=== PATIENT | male | born 1990 | race Caucasian/White ===

== ENCOUNTER 2016-07-07 17:03 | Emergency (ER) | payer SELFPAY ==
--- NOTE | 2016-07-07 17:16 | ER Document Report ---
ED Medical Screen (RME) - General Stated Complaint: STOMACH PAIN Notes: 25 yo male c/o fever, headache x 1 day. epigastric pain last pm, vomited x 2. no chronic illness TRAVEL OUTSIDE OF THE [place] IN LAST 30 DAYS: No - Related Data Allergies/Adverse Reactions: No Known Allergies Allergy (Unverified 08/25/13 11:30) Past Medical History Pulmonary Medical History: Reports: Hx Asthma - Immunizations Hx Diphtheria, Pertussis, Tetanus Vaccination: Yes Physical Exam - Vital signs Vitals: Temp Pulse Resp BP Pulse Ox 101.1 F H 126 H 18 134/71 H 100 07/07/16 17:12 07/07/16 17:12 07/07/16 17:12 07/07/16 17:12 07/07/16 17:12 Course - Vital Signs Vital signs: Temp Pulse Resp BP Pulse Ox 101.1 F H 126 H 18 134/71 H 100 07/07/16 17:12 07/07/16 17:12 07/07/16 17:12 07/07/16 17:12 07/07/16 17:12
[2016-07-07] MEDS ORDERED: ACETAMINOPHEN 325 MG TABLET PO ONE (17:17)
[2016-07-07 17:48] LABS: APPEARANCE,URINE SLIGHTLY-CLOUDY; BILIRUBIN,URINE NEGATIVE (NEGATIVE); GLUCOSE, URINE NEGATIVE (NEGATIVE); KETONES,URINE NEGATIVE (NEGATIVE); LEUKOCYTE ESTERASE,URINE NEGATIVE (NEGATIVE); NITRITE,URINE NEGATIVE (NEGATIVE); PROTEIN,URINE 30 mg/dL (NEGATIVE); URINE SPECIFIC GRAVITY 1.033; UROBILINOGEN,URINE NEGATIVE mg/dL (<2.0)
[2016-07-07 17:56] LABS: ABSOLUTE LYMPHOCYTES (AUTO) 0.8 10^3/uL (0.5-4.7); ABSOLUTE MONOCYTES (AUTO) 0.7 10^3/uL (0.1-1.4); ABSOLUTE NEUT (AUTO) 10.3 10^3/uL (1.7-8.2); ALANINE AMINOTRANSFERASE 48 U/L (21-72); ALBUMIN 4.1 g/dL (3.5-5.0); ALKALINE PHOSPHATASE 69 U/L (38-126); ANION GAP 14 (5-19); ASPARTATE AMINO TRANSFERASE 38 U/L (17-59); BASOPHILS % (AUTO) 0.1 % (0-2); BILIRUBIN,DIRECT 0.1 mg/dL (0.0-0.4); BLOOD UREA NITROGEN 21 mg/dL (7-20); CALCIUM 8.6 mg/dL (8.4-10.2); CARBON DIOXIDE 28 mmol/L (22-30); CHLORIDE 98 mmol/L (98-107); CREATININE RESULT 1.09 mg/dL (0.52-1.25); EOSINOPHILS % (AUTO) 0.2 % (0-6); GLUCOSE 95 mg/dL (75-110); HEMATOCRIT 44.5 % (37.9-51.0); HEMOGLOBIN 15.1 g/dL (13.5-17.0); HGB HCT DIFFERENCE 0.8; LYMPHOCYTES % (AUTO) 6.7 % (13-45); MEAN CORPUSCULAR HEMOGLOBIN 29.9 pg (27.0-33.4); MEAN CORPUSCULAR VOLUME 88 fl (80-97); MONOCYTES % (AUTO) 5.5 % (3-13); POTASSIUM 3.7 mmol/L (3.6-5.0); RED BLOOD COUNT 5.06 10^6/uL (4.35-5.55); RED CELL DISTRIBUTION WIDTH 12.9 % (11.5-14.0); SEGMENTED NEUTROPHILS % (AUTO) 87.5 % (42-78); SODIUM 140.4 mmol/L (137-145); TOTAL PROTEIN 7.2 g/dL (6.3-8.2); WHITE BLOOD COUNT 11.8 10^3/uL (4.0-10.5)
[2016-07-07] MEDS ORDERED: ONDANSETRON 4 MG TAB.RAPDIS PO ONE (20:37)
[2016-07-07] MEDS ORDERED: ONDANSETRON ODT 4 MG TAB (6 TAB/DSPK) PO PRN (20:37)
--- NOTE | 2016-07-07 20:40 | ER Document Report ---
ED General - General Chief Complaint: Headache Stated Complaint: STOMACH PAIN Time seen by provider: 20:35 Notes: Patient is a 25-year-old male that comes emergency department for chief complaint of vomiting that began last night and a fever that developed today. He states that he was having some upper abdominal pain after vomiting currently denies any symptoms. He states he had a headache but this resolved with Tylenol. He denies shortness of breath, chest pain, flank pain. He denies any current symptoms. He denies any surgeries, daily medications, or any other medical history. TRAVEL OUTSIDE OF THE [place] IN LAST 30 DAYS: No - Related Data Allergies/Adverse Reactions: No Known Allergies Allergy (Unverified 08/25/13 11:30) Past Medical History - General Information source: Patient - Social History Smoking Status: Never Smoker Frequency of alcohol use: None Drug Abuse: None Lives with: Family Family History: Reviewed & Not Pertinent Patient has suicidal ideation: No Patient has homicidal ideation: No Pulmonary Medical History: Reports: Hx Asthma Renal/ Medical History: Denies: Hx Peritoneal Dialysis Surgical Hx: Negative - Immunizations Hx Diphtheria, Pertussis, Tetanus Vaccination: Yes Review of Systems - Review of Systems Constitutional: See HPI EENT: No symptoms reported Cardiovascular: No symptoms reported Respiratory: No symptoms reported Gastrointestinal: See HPI Genitourinary: No symptoms reported Male Genitourinary: No symptoms reported Musculoskeletal: No symptoms reported Skin: No symptoms reported Hematologic/Lymphatic: No symptoms reported Neurological/Psychological: See HPI Physical Exam - Vital signs Vitals: Temp Pulse Resp BP Pulse Ox 101.1 F H 126 H 18 134/71 H 100 07/07/16 17:12 07/07/16 17:12 07/07/16 17:12 07/07/16 17:12 07/07/16 17:12 Interpretation: Normal - General General appearance: Appears well, Alert In distress: None - HEENT Head: Normocephalic, Atraumatic Eyes: Normal Conjunctiva: Normal Extraocular movements intact: Yes Eyelashes: Normal Pupils: PERRL Ears: Normal External canal: Normal Tympanic membrane: Normal Sinus: Normal Nasal: Normal Mouth/Lips: Normal Mucous membranes: Normal - Not significantly dry Pharynx: Normal Neck: Normal. No: Anterior cervical chain, Posterior cervical chain, Meningismus - Respiratory Respiratory status: No respiratory distress Chest status: Nontender Breath sounds: Normal Chest palpation: Normal - Cardiovascular Rhythm: Regular. No: Tachycardia Heart sounds: Normal auscultation, S1 appreciated, S2 appreciated Murmur: No - Abdominal Inspection: Normal Distension: No distension Bowel sounds: Normal Tenderness: Nontender Organomegaly: No organomegaly - Back Back: Normal, Nontender - Extremities General upper extremity: Normal inspection, Nontender, Normal color, Normal ROM , Normal temperature General lower extremity: Normal inspection, Nontender, Normal color, Normal ROM , Normal temperature, Normal weight bearing. No: Paul's sign - Neurological Neuro grossly intact: Yes Cognition: Normal Orientation: AAOx4 [place] Coma Scale Eye Opening: Spontaneous [place] Coma Scale Verbal: Oriented [place] Coma Scale Motor: Obeys Commands [place] Coma Scale Total: 15 Speech: Normal Motor strength normal: LUE, RUE, LLE, RLE Sensory: Normal - Psychological Associated symptoms: Normal affect, Normal mood - Skin Skin Temperature: Warm Skin Moisture: Dry Skin Color: Normal Course - Re-evaluation Re-evalutation: Patient is very well-appearing. Fever and tachycardia resolved after treatments from triage. Completely soft and benign abdomen, no nuchal rigidity , clear lungs, ENT exam is unremarkable. Mild leukocytosis, suspect this was from vomiting, dehydration on workup but patient is tolerating fluids by mouth without any difficulty. Providing the nausea medication, discussed primary care follow-up, discussed return precautions, patient states understanding and agreement - Vital Signs Vital signs: Temp Pulse Resp BP Pulse Ox 98.6 F 97 18 119/61 96 07/07/16 20:56 07/07/16 20:56 07/07/16 20:56 07/07/16 20:56 07/07/16 20:56 - Laboratory Result Diagrams: 07/07/16 17:25 07/07/16 17:25 Laboratory results interpreted by me: 07/07/16 07/07/16 07/07/16 17:25 17:25 17:25 WBC 11.8 H Seg Neutrophils % 87.5 H Lymphocytes % 6.7 L Absolute Neutrophils 10.3 H BUN 21 H Urine Protein 30 H Discharge - Discharge Clinical Impression: Nausea and vomiting Qualifiers: Vomiting type: unspecified Vomiting Intractability: non-intractable Qualified Code(s): R11.2 - Nausea with vomiting, unspecified Fever Qualifiers: Fever type: unspecified Qualified Code(s): R50.9 - Fever, unspecified Condition: Stable Disposition: HOME, SELF-CARE Additional Instructions: Symptoms, examination, and workup are most consistent with a viral syndrome. This should resolve on its own. Take Tylenol or ibuprofen for fever, drink plenty of fluids, take Zofran for nausea, rest. Follow up with primary care. Return to emergency department for any concerning worsening symptoms including uncontrolled vomiting, severe abdominal pain, etc. Prescriptions: Ondansetron [Zofran Odt 4 mg Tablet] 1 - 2 tab PO Q4H PRN #15 tab.rapdis PRN Reason: For Nausea/Vomiting Forms: Return to Work
[2016-07-07 20:57] VITALS: BP 119/61
== END 2016-07-07 20:56 | disposition home or self-care (01) ==
LOC: ER 17:03
DX: R11.2 Nausea with vomiting, unspecified (principal); R50.9 Fever, unspecified; J45.909 Unspecified asthma, uncomplicated
CPT/HCPCS: 99284; 36415; 85025; 80053; 81001; 87804; S0119

== ENCOUNTER 2016-11-20 21:49 | Emergency (ER) | payer SELFPAY ==
[2016-11-20 22:06] VITALS: BP 160/81
== END 2016-11-20 22:30 | disposition left against medical advice (07) ==
LOC: ER 21:49
DX: Z53.9 Procedure and treatment not carried out, unspecified reason (principal); S69.92XA Unspecified injury of left wrist, hand and finger(s), initial encounter

== ENCOUNTER 2017-04-19 14:07 | Emergency (ER) | payer SELFPAY ==
--- NOTE | 2017-04-19 14:46 | ER Document Report ---
ED General - General Chief Complaint: Cold Symptoms Stated Complaint: DIFFICULTY BREATHING Time Seen by Provider: 04/19/17 14:44 Information source: Patient Notes: Patient is a 26 year old male who presents with 1 month history of productive cough (yellow sputum), nasal congestion, fever (Tmax 101F yesterday), and sore throat. He denies any headache, neck pain/stiffness, SOB, chest pain, n/v/d. He endorses sick contact (nephew). He did not get flu vaccine. He has tried ibuprofen but no OTC cold medications with no symptomatic relief. He is non- smoker. TRAVEL OUTSIDE OF THE [place] IN LAST 30 DAYS: No - Related Data Allergies/Adverse Reactions: No Known Allergies Allergy (Verified 04/19/17 14:12) Past Medical History - General Information source: Patient - Social History Smoking Status: Never Smoker Family History: Reviewed & Not Pertinent Pulmonary Medical History: Reports: Hx Asthma Renal/ Medical History: Denies: Hx Peritoneal Dialysis - Immunizations Hx Diphtheria, Pertussis, Tetanus Vaccination: Yes Review of Systems - Review of Systems Constitutional: See HPI EENT: See HPI Cardiovascular: No symptoms reported Respiratory: See HPI Gastrointestinal: No symptoms reported Genitourinary: No symptoms reported Male Genitourinary: No symptoms reported Musculoskeletal: No symptoms reported Skin: No symptoms reported Hematologic/Lymphatic: No symptoms reported Neurological/Psychological: No symptoms reported Physical Exam - Vital signs Vitals: Temp Pulse Resp BP Pulse Ox 97.9 F 105 H 18 143/75 H 99 04/19/17 14:30 04/19/17 14:30 04/19/17 14:30 04/19/17 14:30 04/19/17 14:30 - Notes Notes: PHYSICAL EXAM: CONSTITUTIONAL: Alert and oriented, well-appearing and in no acute distress. Speaking in full sentences, no hypoxia, no tacypnea. HENT: Normocephalic, atraumatic. Ear canals without erythema or foreign body, TMs pearly veloz with good bony landmarks. Nares clear without erythema, septal hematoma or deviation, airway patent. Oropharynx erythematous with bilateral tonsillar enlargement without exudate or malocclusion. Trachea midline. Uvula midline. Moist mucous membranes. EYES: Pupils equal round and reactive to light, EOM intact. Sclera anicteric, conjunctiva are normal. No entrapment. NECK: supple without lymphadenopathy. No midline tenderness or paraspinous muscle spasms. No step-offs or deformities. ROM intact. HEART: Regular rate and rhythm without murmurs. LUNGS: CTAB and equal. No wheezes, rales or rhonchi. GI: Normactive bowel sounds. Nontender, non-distended. No organomegaly. no CVAT. EXTREMITIES: Normal range of motion, no pitting edema. No cyanosis. Cap Refill < 3 seconds. NEURO: Cranial nerves grossly intact. Normal sensory/motor exams. PSYCH: Normal mood, normal affect. SKIN: Warm and dry. Normal turgor. No rashes or lesions noted. Course - Re-evaluation Re-evalutation: 04/19/17 16:02 Patient seen and examined. Speaking in full sentences without difficulty, no respiratory distress. No hypoxia or tachypnea noted. Lungs CTAB. Will order chest xray and get rapid strep swab. 04/19/17 16:20 reviewed imaging studies - negative for acute findings. Discussed results with patient. reviewed labs- rapid strep pos. will give IM bicillin and decadron. Discussed supportive care instructions. At this time, will discharge with return precautions and follow-up recommendations. Verbal discharge instructions given at the bedside and opportunity for questions given. Medication warnings reviewed. Patient is in agreement with this plan and has verbalized understanding of return precautions and the need for primary care follow-up in the next 24-72 hours. - Vital Signs Vital signs: Temp Pulse Resp BP Pulse Ox 97.9 F 105 H 18 143/75 H 99 04/19/17 14:30 04/19/17 14:30 04/19/17 14:30 04/19/17 14:30 04/19/17 14:30 - Diagnostic Test Radiology reviewed: Image reviewed, Reports reviewed Discharge - Discharge Clinical Impression: Strep pharyngitis Condition: Stable Disposition: HOME, SELF-CARE Additional Instructions: SORE THROAT: Sore throats may be caused by viruses, bacteria, or fungi. Most are due to a virus, and must get better on their own. Bacterial sore throats, particularly those due to "strep," need treatment with antibiotics. If an antibiotic is prescribed, be sure to take the medication for a full 10 days. Failure to take the antibiotic can result in complications such as rheumatic fever. Sometimes, an injection of antibiotics is given instead of pills or liquid. This single "shot" is equal in effectiveness to the oral medication. To relieve symptoms, take acetaminophen for pain. Sip clear liquids frequently, or eat popsicles or ice chips. Anesthetic sprays or lozenges may help. Make sure the air in the room is not too dry. Avoid using decongestants or antihistamines. Call the doctor if there is no improvement in two days, or if you have difficulty breathing, increasing throat pain, high fever, rash, or frequent vomiting. STREP THROAT: Your sore throat is due to the streptococcus germ (strep throat). Strep throat usually makes you feel quite ill with fever and aches, headache, swollen sore throat, and tender bumps under the angles of the jaw. Strep throat requires antibiotic treatment. Although the sore throat may go away by itself, complications such as rheumatic fever, kidney disease, or throat abscess can occur. We usually prescribe antibiotics by mouth. Be sure to take the medicine until it's gone. If you stop early, the strep may come back. If you are vomiting, are severely ill, or can't remember to take pills, we can give you an antibiotic shot. Take acetaminophen or ibuprofen for pain and fever. Sip frequent clear liquids, or use popsicles or ice chips. Anesthetic sprays or lozenges may help. Make sure the air in the room is not too dry. Avoid using decongestants or antihistamines. Call the doctor if there is no improvement in three days, or if you have difficulty breathing, increasing throat pain, high fever, rash, or frequent vomiting. ORAL NARCOTIC MEDICATION: You have been given a prescription for pain control. This medication is a narcotic. It's best taken with food, as nausea can result if taken on an empty stomach. Don't operate machinery or drive within six hours of taking this medication. Do not combine this medicine with alcohol, or with any medication which can cause sedation (such as cold tablets or sleeping pills) unless you get permission from the physician. Narcotics tend to cause constipation. If possible, drink plenty of fluids and eat a diet high in fiber and fruits. Please be aware that prescription narcotics also have the potential for abuse. People become addicted to these medications because of the general sense of wellbeing that they induce. This feeling along with a significant reduction in tension, anxiety, and aggression provides a stimulating seductive quality to these drugs. Once your pain is under control, we encourage you to discard your unused narcotics. PENICILLIN V K: You have been given a one-time dose of Penicillin here. Your physician has determined that this is the best antibiotic for your condition. Pen VK can be taken with meals, however more of the antibiotic gets into the bloodstream if it's taken on an empty stomach. Penicillin usually has no side effects. However, allergy to penicillins is common. If you have had an allergic reaction to any drug of the penicillin family, you should never take any other penicillin. Notify your doctor at once if you develop hives, itching, swelling, faintness, or shortness of breath. STEROID MEDICATION: You have been given a one time dose of the cortisone/steroid class. This medication is used to control inflammation or allergy. It is usually only given for a short period of time, until the acute process subsides. There are usually no side effects from short-term use of cortisone-like medications. Some persons feel an increased sense of well-being and are not sleepy at bedtime. Long-term use of cortisone medications is best avoided, unless required for a severe condition. If your condition does not remit, or relapses after the course of corticosteroid medication, you should consult your physician. FOLLOW-UP CARE: If you have been referred to a physician for follow-up care, call the physician s office for an appointment as you were instructed or within the next two days. If you experience worsening or a significant change in your symptoms, notify the physician immediately or return to the Emergency Department at any time for re-evaluation. Prescriptions: Hydrocodone/Acetaminophen [Vicodin 5-300 mg Tablet] 1 tab PO Q6HP PRN #12 tab PRN Reason: Forms: Elevated Blood Pressure, Return to Work
--- NOTE | 2017-04-19 16:03 | RADIOLOGY REPORT (SQ) ---
EXAM DESCRIPTION: CHEST PA/LAT COMPLETED DATE/TIME: 04/19/2017 3:42 pm REASON FOR STUDY: cough, congestion COMPARISON: None. EXAM PARAMETERS: NUMBER OF VIEWS: two views TECHNIQUE: Digital Frontal and Lateral radiographic views of the chest acquired. RADIATION DOSE: NA LIMITATIONS: none FINDINGS: LUNGS AND PLEURA: No opacities, masses or pneumothorax. No pleural effusion. MEDIASTINUM AND HILAR STRUCTURES: No masses or contour abnormalities. HEART AND VASCULAR STRUCTURES: Heart normal size. No evidence for failure. BONES: No acute findings. HARDWARE: None in the chest. OTHER: No other significant finding. IMPRESSION: NO SIGNIFICANT RADIOGRAPHIC FINDING IN THE CHEST. TECHNICAL DOCUMENTATION: JOB ID: [id number] [employer]- All Rights Reserved
[2017-04-19] MEDS ORDERED: DEXAMETHASONE SOD PHOSPHATE INJ 4 MG/1 ML VIAL IM ONE (16:49)
[2017-04-19] MEDS ORDERED: PENICILLIN G BENZATHINE 1.2 MILLION UNIT/2 ML DISP.SYRIN IM ONE (16:51)
[2017-04-19 17:50] VITALS: BP 130/80
== END 2017-04-19 18:19 | disposition home or self-care (01) ==
LOC: ER 14:07
DX: J02.0 Streptococcal pharyngitis (principal); R05 Cough
CPT/HCPCS: 99283; 96372; 87880; 71046; J1100; J0561

== ENCOUNTER 2017-05-11 00:43 | Emergency (ER) | payer SELFPAY ==
--- NOTE | 2017-05-11 03:16 | ER Document Report ---
ED General - General Chief Complaint: Flu Symptoms Stated Complaint: FLLU LIKE SYMPTOMS Time Seen by Provider: 05/11/17 03:06 Notes: Patient is a 26-year-old male who presents with complaint of flulike symptoms. Patient says that he was seen here approximately 2 weeks ago. At that time he was diagnosed strep throat. He was given a shot of penicillin. After they said he felt good for several days but then started having cough and congestion again. Says he does feel like he has a lot of postnasal drip-like congestion. He has not been taking anything [id number]. He has had T-max at home of 100. No vomiting. No abdominal pain. No other complaints at this time. He has no chronic medical problems and is otherwise healthy. TRAVEL OUTSIDE OF THE [place] IN LAST 30 DAYS: No - Related Data Allergies/Adverse Reactions: No Known Allergies Allergy (Verified 04/19/17 14:12) Past Medical History - Social History Smoking Status: Never Smoker Chew tobacco use (# tins/day): No Frequency of alcohol use: None Drug Abuse: None Family History: Reviewed & Not Pertinent Patient has suicidal ideation: No Patient has homicidal ideation: No Pulmonary Medical History: Reports: Hx Asthma Renal/ Medical History: Denies: Hx Peritoneal Dialysis - Immunizations Hx Diphtheria, Pertussis, Tetanus Vaccination: Yes Review of Systems - Review of Systems Notes: My Normal Review Basic REVIEW OF SYSTEMS: CONSTITUTIONAL : T-max 100. EENT: Congestion. RESPIRATORY: Cough. GASTROINTESTINAL: Denies abdominal pain. Denies nausea, vomiting, or diarrhea. MUSCULOSKELETAL: Denies neck or back pain or joint pain or swelling. SKIN: Denies rash or skin lesions. NEUROLOGICAL: Denies altered mental status or loss of consciousness. ALL OTHER SYSTEMS REVIEWED AND NEGATIVE. Physical Exam - Vital signs Vitals: Temp Pulse Resp BP Pulse Ox 98.4 F 81 14 119/69 96 05/11/17 01:22 05/11/17 01:22 05/11/17 01:22 05/11/17 01:22 05/11/17 01:22 - Notes Notes: General Appearance: Well nourished, alert, cooperative, no acute distress, no obvious discomfort. Well-appearing. Audible nasal congestion on exam. Vitals: reviewed, See vital signs table. Head: no swelling or tenderness to the head Eyes: PERRL, EOMI, Conjuctiva clear Mouth: No decreasd moisture Throat: No tonsillar inflammation, No airway obstruction, No lymphadenopathy Ears: Normal-appearing tympanic membranes bilaterally. Neck: Supple, no neck tenderness, No thyromegaly Lungs: No wheezing, No rales, No rhonci, No accessory muscle use, good air exchange bilaterally. Heart: Normal rate, Regular rythm, No murmur, no rub Abdomen: Normal BS, soft, No rigidity, No abdominal tenderness, No guarding, no rebound, no abdominal masses, no organomegaly Extremities: strength 5/5 in all extremities, good pulses in all extremities, no swelling or tenderness in the extremities, no edema. Skin: warm, dry, appropriate color, no rash Neuro: speech clear, oriented x 3, normal affect, responds appropriately to questions. Course - Re-evaluation Re-evalutation: 05/11/17 03:56 Chest x-ray obtained because of recurrent coughing and fever at home. Chest x- ray is negative. Patient clinically looks very well. He has a large amount nasal congestion and postnasal drip on exam. I did give him a shot of dexamethasone hoping this might help reduce some inflammation of the nasopharynx and reduce his congestion. Also encouraged him to take over-the- counter Sudafed. I do not see a bacterial source of his infection at this time. I suspect most likely has a viral illness. I encouraged him follow-up with a physician in 2-3 days for reevaluation. I encourage him return to ER if he has high fevers, difficulty breathing, vomiting, or feels unwell. Patient agrees with plan will be discharged home. Dictation of this chart was performed using voice recognition software; therefore, there may be some unintended grammatical errors. - Vital Signs Vital signs: Temp Pulse Resp BP Pulse Ox 98.4 F 81 14 119/69 96 05/11/17 01:22 05/11/17 01:22 05/11/17 01:22 05/11/17 01:22 05/11/17 01:22 Discharge - Discharge Clinical Impression: Cough URI (upper respiratory infection) Qualifiers: URI type: unspecified URI Qualified Code(s): J06.9 - Acute upper respiratory infection, unspecified Condition: Good Disposition: HOME, SELF-CARE Additional Instructions: I suspect that your ongoing cough is related to the significant amount of postnasal drip or mucus that goes down the back of your throat. I have given you a shot of medication called dexamethasone which helps reduce inflammation in your nasal pharynx and around the throat. This should help your symptoms. Also please take [id number] Sudafed. This will help reduce some of the congestion you have and should help you feel better quicker. Your chest x-ray today was negative. There is no evidence of pneumonia. Please follow-up with your doctor in 2-3 days for reevaluation. Please return to the ER immediately if you have recurrent fevers over 101, vomiting, difficulty breathing, or feel that you are worsening.
--- NOTE | 2017-05-11 03:45 | RADIOLOGY REPORT (SQ) ---
EXAM DESCRIPTION: CHEST PA/LAT CLINICAL HISTORY: cough fever COMPARISON: 04/19/2017 FINDINGS: Frontal and lateral views of the chest. The cardiomediastinal silhouette has normal size and contour. No consolidation, pneumothorax, or pleural effusion. No displaced rib fractures identified. Upper abdominal soft tissues are unremarkable. IMPRESSION: 1. No acute pulmonary process identified.
[2017-05-11] MEDS ORDERED: DEXAMETHASONE SOD PHOS INJ 10 MG/1 ML VIAL IM ONE (03:54)
[2017-05-11 04:15] VITALS: BP 118/78
== END 2017-05-11 04:15 | disposition home or self-care (01) ==
LOC: ER 00:43
DX: J06.9 Acute upper respiratory infection, unspecified (principal); R05 Cough; R09.81 Nasal congestion; R09.82 Postnasal drip; J45.909 Unspecified asthma, uncomplicated
CPT/HCPCS: 71046; 99283

== ENCOUNTER 2017-06-21 00:48 | Emergency (ER) | payer SELFPAY ==
[2017-06-21 01:03] VITALS: BP 148/68
--- NOTE | 2017-06-21 09:09 | EKG REPORT ---
SEVERITY:- ABNORMAL ECG - SINUS RHYTHM INCOMPLETE RIGHT BUNDLE BRANCH BLOCK : Confirmed by: Jennifer Bonilla 21-Jun-2017 09:09:03
== END 2017-06-21 02:40 | disposition left against medical advice (07) ==
LOC: ER 00:48
DX: Z53.21 Procedure and treatment not carried out due to patient leaving prior to being seen by health care provider (principal)
CPT/HCPCS: 93005; 93010

== ENCOUNTER 2017-06-21 23:00 | Emergency (ER) | payer SELFPAY ==
[2017-06-21] MEDS ORDERED: LORAZEPAM 1 MG TABLET PO ONE (23:32)
--- NOTE | 2017-06-21 23:36 | ER Document Report ---
ED General - General Chief Complaint: Palpitations Stated Complaint: PALPITATIONS Time Seen by Provider: 06/21/17 23:23 Notes: Patient is a 26-year-old male without past medical history who states he has been taking multiple supplements that he has purchased online for "gaining mass ". Patient states he took the first dose yesterday morning and has been feeling very unwell since that time. He describes symptoms of palpitations, feeling flushed, overheated and extremely anxious. He also notes that he is felt somewhat aggressive and combative. He denies any history of similar symptoms at baseline. Nothing seems to improve or worsen his symptoms. He has not seen his primary care doctor regarding today's concerns. He has no psychiatric history. He denies any additional drug or alcohol use. TRAVEL OUTSIDE OF THE [place] IN LAST 30 DAYS: No - Related Data Allergies/Adverse Reactions: No Known Allergies Allergy (Verified 04/19/17 14:12) Past Medical History - General Information source: Patient - Social History Smoking Status: Never Smoker Frequency of alcohol use: Occasional Drug Abuse: None Lives with: Alone Family History: Reviewed & Not Pertinent Pulmonary Medical History: Reports: Hx Asthma Renal/ Medical History: Denies: Hx Peritoneal Dialysis - Immunizations Hx Diphtheria, Pertussis, Tetanus Vaccination: Yes Review of Systems - Review of Systems Notes: Constitutional: Negative for fever. HENT: Negative for sore throat. Eyes: Negative for visual changes. Cardiovascular: Positive for palpitations and chest discomfort Respiratory: Negative for shortness of breath. Gastrointestinal: Negative for abdominal pain, vomiting or diarrhea. Genitourinary: Negative for dysuria. Musculoskeletal: Negative for back pain. Skin: Negative for rash. Neurological: Negative for headaches, weakness or numbness. 10 point ROS negative except as marked above and in HPI. Physical Exam - Vital signs Vitals: Temp Pulse Resp BP Pulse Ox 97.8 F 79 16 143/77 H 100 06/21/17 23:08 06/21/17 23:08 06/21/17 23:08 06/21/17 23:08 06/21/17 23:08 Interpretation: Hypertensive Notes: PHYSICAL EXAMINATION: GENERAL: Appears anxious, in no acute distress HEAD: Atraumatic, normocephalic. EYES: Pupils equal round and reactive to light, extraocular movements intact, sclera anicteric, conjunctiva are normal. ENT: nares patent, oropharynx clear without exudates. Moderately dry mucous membranes. NECK: Normal range of motion, supple without lymphadenopathy LUNGS: Breath sounds clear to auscultation bilaterally and equal. No wheezes rales or rhonchi. HEART: Regular rate and rhythm without murmurs ABDOMEN: Soft, nontender, normoactive bowel sounds. No guarding, no rebound. No masses appreciated. EXTREMITIES: Normal range of motion, no pitting or edema. No cyanosis. NEUROLOGICAL: No focal neurological deficits. Moves all extremities spontaneously and on command. PSYCH: Somewhat anxious, fidgety SKIN: Warm, Dry, normal turgor, no rashes or lesions noted. Course - Re-evaluation Re-evalutation: 06/21/17 23:36 Patient presents with palpitations but is in no acute distress. Vitals within normal limits at time of arrival. EKG unremarkable with a normal sinus rhythm. Laboratories are unremarkable. Patient denies any chest pain, shortness of breath, or vomiting. At this time based on exam and history do not suspect a new onset arrhythmia, ACS, acute pulmonary embolus, aortic dissection. Patient symptoms are likely secondary a supplement that he has recently started taking as his symptoms started within several hours of taking that supplement and have persistent since that time. Although TSH is noted to be markedly low, the patient's free T4 is normal, free T3 is only mildly elevated. I have instructed the patient to follow-up on these labs. At this time will discharge with return precautions and follow-up recommendations. Verbal discharge instructions given a the bedside and opportunity for questions given. Medication warnings reviewed. Patient is in agreement with this plan and has verbalized understanding of return precautions and the need for primary care follow-up in the next 24-72 hours. - Vital Signs Vital signs: Temp Pulse Resp BP Pulse Ox 97.8 F 79 13 129/77 H 99 06/21/17 23:08 06/21/17 23:08 06/22/17 02:47 06/22/17 02:49 06/22/17 02:47 - Laboratory Result Diagrams: 06/21/17 23:25 06/21/17 23:25 Laboratory results interpreted by me: 06/21/17 06/21/17 06/21/17 23:25 23:25 23:25 WBC 10.8 H Glucose 111 H TSH < 0.01 L Free T3 pg/mL 7.39 H - EKG Interpretation by Me Additional EKG results interpreted by me: 06/21/17 23:37 Sinus rhythm. Rate 76. No ST elevations or depressions. QTC is 446. Discharge - Discharge Clinical Impression: Palpitations Medication reaction Qualifiers: Encounter type: initial encounter Qualified Code(s): T88.7XXA - Unspecified adverse effect of drug or medicament, initial encounter Condition: Good Disposition: HOME, SELF-CARE Additional Instructions: Stop taking the supplements that triggered her symptoms today. Return if you develop chest pain, shortness of breath, pass out, or have any other symptoms that are worrisome to you. Forms: Return to Work
[2017-06-21 23:37] LABS: ABSOLUTE BASOPHILS # (AUTO) 0.1 10^3/uL (0.0-0.2); ABSOLUTE EOSINOPHILS # (AUTO) 0.1 10^3/uL (0.0-0.6); ABSOLUTE LYMPHOCYTES (AUTO) 2.6 10^3/uL (0.5-4.7); BASOPHILS % (AUTO) 0.5 % (0-2); EOSINOPHILS % (AUTO) 1.1 % (0-6); HEMATOCRIT 41.9 % (37.9-51.0); HEMOGLOBIN 14.5 g/dL (13.5-17.0); LYMPHOCYTES % (AUTO) 24.3 % (13-45); MEAN CORPUSCULAR HEMOGLOBIN 30.1 pg (27.0-33.4); MEAN CORPUSCULAR HGB CONC 34.7 g/dL (32.0-36.0); MEAN CORPUSCULAR VOLUME 87 fl (80-97); MONOCYTES % (AUTO) 9.3 % (3-13); PLATELET COUNT 281 10^3/uL (150-450); RED BLOOD COUNT 4.82 10^6/uL (4.35-5.55); RED CELL DISTRIBUTION WIDTH 12.3 % (11.5-14.0); SEGMENTED NEUTROPHILS % (AUTO) 64.8 % (42-78); TOTAL CELLS COUNTED % (AUTO) 100 %; WHITE BLOOD COUNT 10.8 10^3/uL (4.0-10.5)
[2017-06-21 23:48] LABS: ALANINE AMINOTRANSFERASE 56 U/L (21-72); ALBUMIN 4.3 g/dL (3.5-5.0); ALKALINE PHOSPHATASE 83 U/L (38-126); ANION GAP 11 (5-19); ASPARTATE AMINO TRANSFERASE 52 U/L (17-59); BILIRUBIN,DIRECT 0.1 mg/dL (0.0-0.4); BILIRUBIN,TOTAL 0.4 mg/dL (0.2-1.3); BLOOD UREA NITROGEN 17 mg/dL (7-20); CALCIUM 9.3 mg/dL (8.4-10.2); CARBON DIOXIDE 27 mmol/L (22-30); CHLORIDE 104 mmol/L (98-107); CREATINE KINASE 137 U/L (55-170); GLUCOSE 111 mg/dL (75-110); POTASSIUM 4.1 mmol/L (3.6-5.0); SODIUM 142.2 mmol/L (137-145)
[2017-06-22 00:05] LABS: FREE T3 7.39 pg/mL (2.77-5.27); FREE T4 (FREE THYROXINE) 2.06 ng/dL (0.78-2.19)
[2017-06-22 00:21] LABS: THYROID STIMULATING HORMONE < 0.01 uIU/mL (0.47-4.68)
[2017-06-22] MEDS ORDERED: HALOPERIDOL 5 MG TABLET PO ONE (00:36)
[2017-06-22 02:51] VITALS: BP 129/77
--- NOTE | 2017-06-22 08:54 | EKG REPORT ---
SEVERITY:- ABNORMAL ECG - SINUS TACHYCARDIA NONSPECIFIC INTRAVENTRICULAR CONDUCTION DELAY : Confirmed by: Jennifer Bonilla 22-Jun-2017 08:53:25
--- NOTE | 2017-06-22 08:54 | EKG REPORT ---
SEVERITY:- ABNORMAL ECG - SINUS RHYTHM NONSPECIFIC INTRAVENTRICULAR CONDUCTION DELAY : Confirmed by: Jennifer Bonilla 22-Jun-2017 08:53:42
== END 2017-06-22 02:51 | disposition home or self-care (01) ==
LOC: ER 23:00
DX: R00.2 Palpitations (principal); F41.9 Anxiety disorder, unspecified
CPT/HCPCS: 36415; 80053; 82550; 84439; 84443; 84481; 85025; 93005; 93010; 99285

== ENCOUNTER 2017-06-25 20:04 | Emergency (ER) | payer SELFPAY ==
--- NOTE | 2017-06-25 21:15 | ER Document Report ---
ED General - General Chief Complaint: Palpitations Stated Complaint: PALPITATIONS Time Seen by Provider: 06/25/17 20:55 Notes: Patient is a 26-year-old male comes emergency department for chief complaint of episodes where he will feel like his heart is beating irregularly and rapidly, he states that during the episodes of feel short of breath, feel a discomfort in his chest, he states that earlier before coming to the ER he felt like he was going to pass out. He has not had a syncopal episode. He states that symptoms have been going on intermittently for 1 week now, he states he was seen for this a couple of days ago and told to stop taking any supplements, he has not taken any supplements for a few days. He states he had been taking some SARMS. He denies lower extremity swelling, recent travel or surgery, he denies any daily medication or any medical history. No family history of blood clot or early cardiac disease. He denies nausea or vomiting, fever or chills, cough, or any other symptoms than the ones reported. He denies recreational drugs, smoking, alcohol. TRAVEL OUTSIDE OF THE [place] IN LAST 30 DAYS: No - Related Data Allergies/Adverse Reactions: No Known Allergies Allergy (Verified 04/19/17 14:12) Past Medical History - General Information source: Patient - Social History Smoking Status: Never Smoker Frequency of alcohol use: None Drug Abuse: None Lives with: Spouse/Significant other Family History: Reviewed & Not Pertinent Pulmonary Medical History: Reports: Hx Asthma Renal/ Medical History: Denies: Hx Peritoneal Dialysis Surgical Hx: Negative - Immunizations Immunizations up to date: Yes Hx Diphtheria, Pertussis, Tetanus Vaccination: Yes Review of Systems - Review of Systems Constitutional: No symptoms reported EENT: No symptoms reported Cardiovascular: See HPI Respiratory: No symptoms reported Gastrointestinal: No symptoms reported Genitourinary: No symptoms reported Male Genitourinary: No symptoms reported Musculoskeletal: No symptoms reported Skin: No symptoms reported Hematologic/Lymphatic: No symptoms reported Neurological/Psychological: See HPI Physical Exam - Vital signs Vitals: Temp Pulse Resp BP Pulse Ox 97.8 F 89 18 136/72 H 100 06/25/17 20:51 06/25/17 20:51 06/25/17 20:51 06/25/17 20:51 06/25/17 20:51 - General General appearance: Anxious In distress: None - HEENT Head: Normocephalic, Atraumatic Eyes: Normal Conjunctiva: Normal Extraocular movements intact: Yes Eyelashes: Normal Pupils: PERRL - Slightly dilated pupils bilaterally Nasal: Normal Mouth/Lips: Normal Mucous membranes: Normal Pharynx: Normal Neck: Normal - Respiratory Respiratory status: No respiratory distress. No: Labored, Tachypnea Breath sounds: Normal. No: Decreased air movement, Wheezing - Cardiovascular Rhythm: Regular. No: Tachycardia Heart sounds: Normal auscultation, S1 appreciated, S2 appreciated Murmur: No Normal capillary refill: Yes - Abdominal Inspection: Normal Tenderness: Nontender. No: Tender, Guarding - Extremities General upper extremity: Normal inspection, Nontender, Normal strength, Normal temperature General lower extremity: Normal inspection, Nontender, Normal strength, Normal temperature. No: Edema - Neurological Neuro grossly intact: Yes Cognition: Normal Orientation: AAOx4 Aro[place]o Coma Scale Eye Opening: Spontaneous [place] Coma Scale Verbal: Oriented [place]o Coma Scale Motor: Obeys Commands Aroldo Coma Scale Total: 15 Speech: Normal Cranial nerves: Normal Cerebellar coordination: Normal Motor strength normal: LUE, RUE, LLE, RLE Additional motor exam normals: Equal vertical borer Sensory: Normal - Psychological Associated symptoms: Anxious - Skin Skin Temperature: Warm Skin Moisture: Dry Skin Color: Normal Course - Re-evaluation Re-evalutation: EKG shows sinus rhythm with no T-wave inversions or ST segment changes in consecutive leads. Right bundle branch block. Normal OR interval. Chest x-ray unremarkable. CBC, chemistry, urinalysis, urine drug screen, d- dimer, troponin are all negative and unremarkable. Very low suspicion of ACS, pulmonary embolism. Placed patient on monitoring, patient began to complain that he was having the palpitations and discomfort again, I entered the room, patient was mildly tachycardic, pupils were dilated, flushed, and appeared to be very anxious with a panic attack. However the monitor remains sinus rhythm. He had no PVCs or arrhythmias noted with the entire duration of his monitoring. Patient given 0.5 mg of Ativan, symptoms subsided completely. I did review that 2 days ago patient had a thyroid panel performed, TSH is very low, T3 mildly elevated. Suggestive of hyperthyroid component, however patient is now asymptomatic with normal vital signs, had normal presenting vital signs, and thyroid panel was not overly concerning. I provided patient with copy of this, he will follow-up with primary care for this, I did discuss anxiety, panic attacks, and his workup in total. I did provide patient with small amount of Ativan only to take in the event of panic attacks, he will have additional management by primary care for this as well. Patient states understanding and agreement with plan. - Vital Signs Vital signs: Temp Pulse Resp BP Pulse Ox 99.8 F 89 20 121/64 98 06/25/17 23:55 06/25/17 20:51 06/25/17 23:55 06/25/17 23:55 06/25/17 23:55 - Laboratory Result Diagrams: 06/25/17 21:35 06/25/17 21:35 Laboratory results interpreted by me: 06/25/17 06/25/17 21:35 21:35 Monocytes % 13.4 H BUN 23 H Discharge - Discharge Clinical Impression: Tachycardia, Anxiety Condition: Stable Disposition: HOME, SELF-CARE Additional Instructions: It is not completely clear if your symptoms were from the supplements, this seems less likely now because of the duration since he took them, however your thyroid panel was not normal and has a hyperthyroid shift. This can cause a variety of symptoms. Please take your thyroid results and follow-up with primary care to have this workup and management completed. Avoid caffeine or other stimulants. Tonight you appeared to have a panic attack. See additional details on this below. In the event of a panic attack, take the medication prescribed only if needed, do not take otherwise. Do not drive, mix with alcohol, mixed with other sedating medication. Follow-up with primary care in regards to this as well. Panic Attack The cause of panic attacks is unknown. Symptoms can include chest pain, shortness of breath, palpitations, sweats, and a sense of smothering or impending doom. In time, the panic attacks can lead to generalized anxiety and phobias. Because the symptoms can mimic heart attack, pulmonary embolism, and other serious diseases, the physician has evaluated you for these conditions. There is no evidence of a serious problem. An acute panic attack usually goes away by itself without treatment. A severe attack can be treated with medicine to calm you. Long-term, antidepressant medicines may help prevent attacks. Counselling can also be very beneficial in dealing with panic attacks. Panic attacks are less likely if you are getting regular exercise, proper diet, and plenty of sleep. It's normal for panic attacks to cause many frightening symptoms. However, you should call or return if your symptoms change significantly or if you are worsening. Prescriptions: Lorazepam [Ativan 1 mg Tablet] 1 mg PO Q4 PRN #10 tab PRN Reason:
[2017-06-25 21:47] LABS: ABSOLUTE BASOPHILS # (AUTO) 0.1 10^3/uL (0.0-0.2); ABSOLUTE EOSINOPHILS # (AUTO) 0.1 10^3/uL (0.0-0.6); ABSOLUTE LYMPHOCYTES (AUTO) 2.9 10^3/uL (0.5-4.7); ABSOLUTE MONOCYTES (AUTO) 1.2 10^3/uL (0.1-1.4); ABSOLUTE NEUT (AUTO) 4.4 10^3/uL (1.7-8.2); BASOPHILS % (AUTO) 0.6 % (0-2); EOSINOPHILS % (AUTO) 1.6 % (0-6); HEMATOCRIT 43.4 % (37.9-51.0); HEMOGLOBIN 15.2 g/dL (13.5-17.0); LYMPHOCYTES % (AUTO) 33.6 % (13-45); MEAN CORPUSCULAR HEMOGLOBIN 30.2 pg (27.0-33.4); MEAN CORPUSCULAR VOLUME 86 fl (80-97); MONOCYTES % (AUTO) 13.4 % (3-13); PLATELET COUNT 304 10^3/uL (150-450); RED BLOOD COUNT 5.03 10^6/uL (4.35-5.55); RED CELL DISTRIBUTION WIDTH 12.2 % (11.5-14.0); SEGMENTED NEUTROPHILS % (AUTO) 50.8 % (42-78); TOTAL CELLS COUNTED % (AUTO) 100 %; WHITE BLOOD COUNT 8.6 10^3/uL (4.0-10.5)
--- NOTE | 2017-06-25 21:48 | RADIOLOGY REPORT (SQ) ---
EXAM DESCRIPTION: CHEST SINGLE VIEW COMPLETED DATE/TIME: 06/25/2017 9:38 pm REASON FOR STUDY: chest pain COMPARISON: 05/11/2017 EXAM PARAMETERS: NUMBER OF VIEWS: One view. TECHNIQUE: Single frontal radiographic view of the chest acquired. RADIATION DOSE: NA LIMITATIONS: None. FINDINGS: LUNGS AND PLEURA: No opacities, masses or pneumothorax. No pleural effusion. MEDIASTINUM AND HILAR STRUCTURES: No masses. Contour normal. HEART AND VASCULAR STRUCTURES: Heart normal in size. Normal vasculature. BONES: No acute findings. HARDWARE: None in the chest. OTHER: No other significant finding. IMPRESSION: NO ACUTE RADIOGRAPHIC FINDING IN THE CHEST. TECHNICAL DOCUMENTATION: JOB ID: [id number] [employer]- All Rights Reserved Reading location - IP/workstation name: [email or web address]
[2017-06-25 22:10] LABS: ALANINE AMINOTRANSFERASE 66 U/L (21-72); ALBUMIN 4.4 g/dL (3.5-5.0); ALKALINE PHOSPHATASE 81 U/L (38-126); ANION GAP 11 (5-19); ASPARTATE AMINO TRANSFERASE 38 U/L (17-59); BILIRUBIN,DIRECT 0.4 mg/dL (0.0-0.4); BILIRUBIN,TOTAL 0.5 mg/dL (0.2-1.3); BLOOD UREA NITROGEN 23 mg/dL (7-20); CALCIUM 9.9 mg/dL (8.4-10.2); CARBON DIOXIDE 26 mmol/L (22-30); CHLORIDE 106 mmol/L (98-107); GLUCOSE 99 mg/dL (75-110); POTASSIUM 3.9 mmol/L (3.6-5.0); SODIUM 142.6 mmol/L (137-145); TOTAL PROTEIN 7.5 g/dL (6.3-8.2)
[2017-06-25] MEDS ORDERED: LORAZEPAM INJ 2 MG/1 ML VIAL IV ONE (22:14)
[2017-06-25 22:35] LABS: APPEARANCE,URINE CLEAR; BILIRUBIN,URINE NEGATIVE (NEGATIVE); COLOR,URINE STRAW; GLUCOSE, URINE NEGATIVE (NEGATIVE); KETONES,URINE NEGATIVE (NEGATIVE); LEUKOCYTE ESTERASE,URINE NEGATIVE (NEGATIVE); NITRITE,URINE NEGATIVE (NEGATIVE); PROTEIN,URINE NEGATIVE (NEGATIVE); URINE SPECIFIC GRAVITY 1.008; UROBILINOGEN,URINE NEGATIVE mg/dL (<2.0)
[2017-06-25 22:47] LABS: URINE AMPHETAMINES SCREEN NEGATIVE; URINE BARBITURATES SCREEN NEGATIVE; URINE BENZODIAZEPINES SCREEN NEGATIVE; URINE COCAINE SCREEN NEGATIVE; URINE MARIJUANA (THC) SCREEN NEGATIVE; URINE METHADONE SCREEN NEGATIVE; URINE PHENCYCLIDINE SCREEN NEGATIVE
[2017-06-26] VITALS: BP 121/64
--- NOTE | 2017-06-26 10:41 | EKG REPORT ---
SEVERITY:- ABNORMAL ECG - SINUS TACHYCARDIA RIGHT BUNDLE BRANCH BLOCK : Confirmed by: Jennifer Bonilla 26-Jun-2017 10:40:40
== END 2017-06-26 00:20 | disposition home or self-care (01) ==
LOC: ER 20:04
DX: F41.9 Anxiety disorder, unspecified (principal); R00.0 Tachycardia, unspecified; R09.89 Other specified symptoms and signs involving the circulatory and respiratory systems; I45.10 Unspecified right bundle-branch block; J45.909 Unspecified asthma, uncomplicated; R06.02 Shortness of breath
CPT/HCPCS: 93005; 99285; 96374; 36415; 83735; 85025; 80053; 81001; 84484; 80307; 85379; 71045; 93010; J2060

== ENCOUNTER 2017-09-01 00:08 | Emergency (ER) | payer SELFPAY ==
--- NOTE | 2017-09-01 00:31 | ER Document Report ---
ED General - General Chief Complaint: Chest Pain Stated Complaint: CHEST PAIN Time Seen by Provider: 09/01/17 00:16 Notes: Patient is a 26-year-old male who presents with complaint of some chest pain shortness of breath. He says he feels more as if he just cannot get air in. He was seen here back in June for palpitations. At that time he was taking a "hormone booster" to help with working out and putting on muscle. He was having palpitations and feeling well at that time. Is also noted that his TSH was a little bit low and is T3 was low bit elevated. Followed up with his primary care doctor was placed on Atenolol. He says since starting Atenolol he has felt a little bit more week and has felt some shortness of breath. He is wondering if the Atenolol dose is too high. He is unsure with his repeat thyroid studies have shown. Denies any fevers. No infections. Denies any recent leg pain or leg swelling. No other complaints this time. He has a previous history of asthma. He does not think he has been wheezing. TRAVEL OUTSIDE OF THE [place] IN LAST 30 DAYS: No - Related Data Allergies/Adverse Reactions: No Known Allergies Allergy (Verified 04/19/17 14:12) Past Medical History - Social History Smoking Status: Never Smoker Frequency of alcohol use: None Drug Abuse: None Family History: Reviewed & Not Pertinent Pulmonary Medical History: Reports: Hx Asthma Renal/ Medical History: Denies: Hx Peritoneal Dialysis - Immunizations Immunizations up to date: Yes Hx Diphtheria, Pertussis, Tetanus Vaccination: Yes Review of Systems - Review of Systems Notes: My Normal Review Basic REVIEW OF SYSTEMS: CONSTITUTIONAL : Denies fever, chills, or sweats. Denies recent illness. EENT: Denies eye, ear, throat, or mouth pain or symptoms. Denies nasal or sinus congestion. CARDIOVASCULAR: No real chest pain. He has more tightness in the chest. RESPIRATORY: Feels as if he cannot get air in when taking a deep breath. GASTROINTESTINAL: Denies abdominal pain. Denies nausea, vomiting, or diarrhea. Denies constipation. Last BM: MUSCULOSKELETAL: Denies neck or back pain or joint pain or swelling. SKIN: Denies rash or skin lesions. NEUROLOGICAL: Denies altered mental status or loss of consciousness. Denies headache. Denies weakness or paralysis or loss of use of either side. Denies problems with gait or speech. Denies sensory or motor loss. ALL OTHER SYSTEMS REVIEWED AND NEGATIVE. Physical Exam - Vital signs Vitals: Temp Pulse Resp BP Pulse Ox 98.5 F 56 L 18 134/77 H 99 09/01/17 00:13 09/01/17 00:13 09/01/17 00:13 09/01/17 00:13 09/01/17 00:13 - Notes Notes: General Appearance: Well nourished, alert, cooperative, no acute distress, no obvious discomfort. Well-appearing. Vitals: reviewed, See vital signs table. Head: no swelling or tenderness to the head Eyes: PERRL, EOMI, Conjuctiva clear Mouth: No decreasd moisture Lungs: No wheezing, No rales, No rhonci, No accessory muscle use, good air exchange bilaterally. Heart: Normal rate, Regular rythm, No murmur, no rub Abdomen: Normal BS, soft, No rigidity, No abdominal tenderness, No guarding, no rebound, no abdominal masses, no organomegaly Extremities: strength 5/5 in all extremities, good pulses in all extremities, no swelling or tenderness in the extremities, no edema. Skin: warm, dry, appropriate color, no rash Neuro: speech clear, oriented x 3, normal affect, responds appropriately to questions. Course - Re-evaluation Re-evalutation: 09/01/17 02:56 Patient was placed on atenolol by the primary care doctor because palpitations and hyperthyroidism. Since she states she is actually now will be elevated. His T3 is decreasing. I wonder if it may be the hormone supplementation that he was taking may have had some effect on his thyroid production. Patient is already bradycardic with heart rate in the upper 40s and low 50s. Therefore should stop atenolol. Atenolol could also be affecting his breathing and making his heart rate decreased. I talked about this and is agreeable to this. I strongly encouraged him follow-up with his doctor next 1-2 days for reevaluation and to recheck his thyroid levels. I strongly encouraged her return to ER if he has recurrent difficulty breathing, heart racing, palpitations, or if he feels unwell. Patient agrees with plan will be discharged home. Dictation of this chart was performed using voice recognition software; therefore, there may be some unintended grammatical errors. - Vital Signs Vital signs: Temp Pulse Resp BP Pulse Ox 98.5 F 56 L 16 112/73 99 09/01/17 00:13 09/01/17 00:13 09/01/17 02:31 09/01/17 02:31 09/01/17 02:31 - Laboratory Laboratory results interpreted by me: 09/01/17 01:17 TSH 7.55 H Free T3 pg/mL 5.90 H - EKG Interpretation by Me Additional EKG results interpreted by me: 09/01/17 00:27 EKG is reviewed and interpreted by me. EKG shows sinus rhythm with a rate of [address] segment elevation or depression. No ischemic T-wave inversions. MD interval and QT intervals are within normal range. QRS duration slightly prolonged. Patient does have appears to be an incomplete or atypical right bundle branch block. These findings are consistent with his previous EKG from June 25, 2017. Discharge - Discharge Clinical Impression: Dyspnea Qualifiers: Dyspnea type: unspecified Qualified Code(s): R06.00 - Dyspnea, unspecified Condition: Good Disposition: HOME, SELF-CARE Additional Instructions: Please stop taking the Atenolol. Please call your doctor in the am to make a close follow up appointment on tuesday. Please return to the ER if you feel that you heart is racing, have recurrent difficulty breathing, or feel that you are worsening n any way. Forms: Return to Work
--- NOTE | 2017-09-01 00:57 | RADIOLOGY REPORT (SQ) ---
EXAM DESCRIPTION: Single view of the chest CLINICAL HISTORY: dyspnea COMPARISON: 06/25/2017 FINDINGS: Single frontal view of the chest. The cardiomediastinal silhouette has normal size and contour. No consolidation, pneumothorax, or pleural effusion. No displaced rib fractures identified. Upper abdominal soft tissues are unremarkable. IMPRESSION: 1. No acute pulmonary process identified.
[2017-09-01 01:59] LABS: FREE T3 5.9 pg/mL (2.77-5.27); FREE T4 (FREE THYROXINE) 1.1 ng/dL (0.78-2.19)
[2017-09-01 02:13] LABS: THYROID STIMULATING HORMONE 7.55 uIU/mL (0.47-4.68)
[2017-09-01 02:49] VITALS: BP 112/73
--- NOTE | 2017-09-01 09:57 | EKG REPORT ---
SEVERITY:- ABNORMAL ECG - SINUS RHYTHM IVCD, CONSIDER ATYPICAL RBBB INFERIOR Q WAVES, PROBABLY NORMAL VARIATION : Confirmed by: Jennifer Bonilla 01-Sep-2017 09:56:56
== END 2017-09-01 02:33 | disposition home or self-care (01) ==
LOC: ER 00:08
DX: J45.909 Unspecified asthma, uncomplicated (principal); R06.02 Shortness of breath; R00.1 Bradycardia, unspecified; R07.89 Other chest pain; R53.1 Weakness; R00.2 Palpitations; E05.90 Thyrotoxicosis, unspecified without thyrotoxic crisis or storm; Z79.899 Other long term (current) drug therapy
CPT/HCPCS: 36415; 71045; 84439; 84443; 84481; 93005; 93010; 99285

== ENCOUNTER 2017-09-01 21:27 | Emergency (ER) | payer SELFPAY ==
--- NOTE | 2017-09-01 21:55 | ER Document Report ---
ED Medical Screen (RME) - General Chief Complaint: Palpitations Stated Complaint: CHEST PAIN, PALPITATIONS Time Seen by Provider: 09/01/17 21:52 TRAVEL OUTSIDE OF THE [place] IN LAST 30 DAYS: No - HPI Notes: 09/01/17 21:52 Patient is a 26-year-old male with a history of anxiety and palpitations who presents to the ED complaining of left sternal chest pain and episodes of palpitations over the last couple hours. Patient states that he used to be on atenolol, but has since stopped that. Patient has been seen before in the past for palpitations. He is still eating and drinking without difficulties. He is urinating normally. He does not smoke, drink, or do drugs. 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 Denies any headache, fever, neck pain, URI, sore throat, syncope, cough, shortness of breath, wheeze, dyspnea, abdominal pain, nausea/ vomiting/diarrhea, urinary retention, dysuria, hematuria, or rash. I have treated and performed a rapid initial assessment of this patient. A comprehensive ED assessment and evaluation of the patient, analysis of test results and completion of medical decision making process will be conducted by additional ED providers. PHYSICAL EXAMINATION: GENERAL: Well-appearing, well-nourished and in no acute distress. A&Ox4. Answers questions appropriately. Chest: + tenderness to the left sternal border, correlates with pain described. LUNGS: Breath sounds clear to auscultation bilaterally and equal. No wheezes rales or rhonchi. HEART: Regular rate and rhythm without murmurs, rubs, gallops. Extremities: No cyanosis, clubbing, or edema b/l. NEUROLOGICAL: Normal speech, normal gait. PSYCH: Normal mood, normal affect. - Related Data Allergies/Adverse Reactions: No Known Allergies Allergy (Verified 04/19/17 14:12) Past Medical History Pulmonary Medical History: Reports: Hx Asthma Renal/ Medical History: Denies: Hx Peritoneal Dialysis - Immunizations Immunizations up to date: Yes Hx Diphtheria, Pertussis, Tetanus Vaccination: Yes Physical Exam - Vital signs Vitals: Temp Pulse Resp BP Pulse Ox 97.6 F 61 18 136/72 H 100 09/01/17 21:44 09/01/17 21:44 09/01/17 21:44 09/01/17 21:44 09/01/17 21:44 Course - Vital Signs Vital signs: Temp Pulse Resp BP Pulse Ox 97.6 F 61 18 136/72 H 100 09/01/17 21:44 09/01/17 21:44 09/01/17 21:44 09/01/17 21:44 09/01/17 21:44
--- NOTE | 2017-09-01 22:42 | RADIOLOGY REPORT (SQ) ---
EXAM DESCRIPTION: CHEST 2 VIEWS COMPLETED DATE/TIME: 09/01/2017 10:30 pm REASON FOR STUDY: chest pain COMPARISON: 05/11/2017 EXAM PARAMETERS: NUMBER OF VIEWS: two views TECHNIQUE: Digital Frontal and Lateral radiographic views of the chest acquired. RADIATION DOSE: NA LIMITATIONS: none FINDINGS: LUNGS AND PLEURA: No opacities, masses or pneumothorax. No pleural effusion. MEDIASTINUM AND HILAR STRUCTURES: No masses or contour abnormalities. HEART AND VASCULAR STRUCTURES: Heart normal size. No evidence for failure. BONES: No acute findings. HARDWARE: None in the chest. OTHER: No other significant finding. IMPRESSION: NO ACUTE RADIOGRAPHIC FINDING IN THE CHEST. TECHNICAL DOCUMENTATION: JOB ID: [id number] [email or web address]- All Rights Reserved Reading location - IP/workstation name: [email or web address]
--- NOTE | 2017-09-01 23:40 | ER Document Report ---
ED General - General Chief Complaint: Palpitations Stated Complaint: CHEST PAIN, PALPITATIONS Time Seen by Provider: 09/01/17 21:52 Notes: Patient is a 26-year-old male who presents with complaint of feeling palpitations. When asked him to explain palpitations he says he just feels as if his heart beats hard. He says it does not initially be fast but it beats heart sometimes hurts when the beats. I saw him yesterday for similar symptoms. Patient has a history of taking hormone supplementation. He was seen a month ago after this he was told to stop doing that and also his thyroid function was off and therefore he was referred to primary care doctor placed on atenolol. Patient's heart rate last night was in the 40s most the time he was on a monitor and therefore I told him he has a state taking the atenolol. Patient says he feels that his palpitations have increased even though his heart rate is completely normal here. When talking to mom watch and monitor and I do not see any evidence in his heart rate remains in the 50s and 60s a whole time in the room. TRAVEL OUTSIDE OF THE [place] IN LAST 30 DAYS: No - Related Data Allergies/Adverse Reactions: No Known Allergies Allergy (Verified 04/19/17 14:12) Past Medical History - Social History Smoking Status: Never Smoker Frequency of alcohol use: None Drug Abuse: None Family History: Reviewed & Not Pertinent Pulmonary Medical History: Reports: Hx Asthma Renal/ Medical History: Denies: Hx Peritoneal Dialysis - Immunizations Immunizations up to date: Yes Hx Diphtheria, Pertussis, Tetanus Vaccination: Yes Review of Systems - Review of Systems Notes: My Normal Review Basic REVIEW OF SYSTEMS: CONSTITUTIONAL : Denies fever, chills, or sweats. Denies recent illness. EENT: Denies eye, ear, throat, or mouth pain or symptoms. Denies nasal or sinus congestion. CARDIOVASCULAR: Occasional pain in chest when he feels a "hard heartbeat". RESPIRATORY: Denies cough, cold, or chest congestion. Denies shortness of breath, difficulty breathing, or wheezing. GASTROINTESTINAL: Denies abdominal pain. Denies nausea, vomiting, or diarrhea. Denies constipation. Last BM: GENITOURINARY: Denies difficulty urinating, painful urination, burning, frequency, or blood in urine. MUSCULOSKELETAL: Denies neck or back pain or joint pain or swelling. SKIN: Denies rash or skin lesions. NEUROLOGICAL: Denies altered mental status or loss of consciousness. Denies headache. Denies weakness or paralysis or loss of use of either side. Denies problems with gait or speech. Denies sensory or motor loss. ALL OTHER SYSTEMS REVIEWED AND NEGATIVE. Physical Exam - Vital signs Vitals: Temp Pulse Resp BP Pulse Ox 97.6 F 61 18 136/72 H 100 09/01/17 21:44 09/01/17 21:44 09/01/17 21:44 09/01/17 21:44 09/01/17 21:44 - Notes Notes: General Appearance: Well nourished, alert, cooperative, no acute distress, no obvious discomfort. Well-appearing. Vitals: reviewed, See vital signs table. Head: no swelling or tenderness to the head Eyes: PERRL, EOMI, Conjuctiva clear Mouth: No decreasd moistur Neck: Supple, no neck tenderness, No thyromegaly Lungs: No wheezing, No rales, No rhonci, No accessory muscle use, good air exchange bilaterally. Heart: Normal rate, Regular rythm, No murmur, no rub Extremities: strength 5/5 in all extremities, good pulses in all extremities, no swelling or tenderness in the extremities, no edema. Skin: warm, dry, appropriate color, no rash Neuro: speech clear, oriented x 3, normal affect, responds appropriately to questions. Course - Re-evaluation Re-evalutation: 09/02/17 05:59 She looks very well on exam. I do not see evidence of PACs or PVCs while talked to the patient watch and monitor. He has normal-appearing EKG except for right bundle branch block which is old in comparison to his previous EKGs. Chest x-ray is ordered in triage and continues to be normal. I will refer him to cardiology for follow-up and possible Holter monitor placement. Patient has no risk factors for coronary disease. Otherwise looks well. Patient was again asked about whether or not he should take an estrogen supplements to help with his thyroid. I informed him that last night when he is here his thyroid function numbers were improving significantly and that he should therefore stay away from all forms of supplement or amount that are not prescribed. Patient agrees to do this. Patient return to ER if she he has severe chest pain, difficulty breathing, rapid heartbeat, or if he feels unwell. Patient agrees with plan will be discharged home. Dictation of this chart was performed using voice recognition software; therefore, there may be some unintended grammatical errors. - Vital Signs Vital signs: Temp Pulse Resp BP Pulse Ox 97.8 F 85 18 122/78 100 09/01/17 23:52 09/01/17 23:52 09/01/17 23:52 09/01/17 23:52 09/01/17 23:52 - EKG Interpretation by Me Additional EKG results interpreted by me: 09/01/17 23:39 EKG is reviewed and interpreted by me. EKG shows sinus rhythm with rate [address] segment elevation or depression. No ischemic T-wave inversions. ID interval and QTc intervals are within normal range. QRS duration is slightly prolonged. Patient does have a incomplete right bundle branch block which is unchanged comparison to his previous EKG. Discharge - Discharge Clinical Impression: Heart palpitations Condition: Good Disposition: HOME, SELF-CARE Additional Instructions: Please do not take the Atenolol as your heart rate is too ow too take it. Please call Dr. Shannon's office in the am and inform them that the ER is referring you there for evaluation and potential holter monitor due to your recurrent palpitations. Please do not take any form of hormone supplementation. Your Thyroid function was much improved last night compared to last month. Despite this, you still need to follow up with your doctor early next week and have it rechecked to make sure it is continuing to improve. Referrals: TESSY SHANNON MD [ACTIVE STAFF] - 09/02/17
[2017-09-01 23:53] VITALS: BP 122/78
[2017-09-02] MEDS ORDERED: ACETAMINOPHEN 325 MG TABLET ONE (00:56)
--- NOTE | 2017-09-02 08:17 | EKG REPORT ---
SEVERITY:- ABNORMAL ECG - SINUS RHYTHM NONSPECIFIC INTRAVENTRICULAR CONDUCTION DELAY : Confirmed by: eJnnifer Bonilla 02-Sep-2017 05:17:26
== END 2017-09-01 23:55 | disposition home or self-care (01) ==
LOC: ER 21:27
DX: R00.2 Palpitations (principal); R07.9 Chest pain, unspecified; I45.10 Unspecified right bundle-branch block; J45.909 Unspecified asthma, uncomplicated
CPT/HCPCS: 71046; 93005; 93010; 99284

== ENCOUNTER 2017-09-02 00:41 | Emergency (ER) | payer SELFPAY ==
[2017-09-02] MEDS ORDERED: LORAZEPAM 1 MG TABLET PO ONE (02:55)
--- NOTE | 2017-09-02 03:18 | ER Document Report ---
ED General - General Chief Complaint: Palpitations Stated Complaint: RAPID HEART RATE Time Seen by Provider: 09/02/17 02:54 TRAVEL OUTSIDE OF THE [place] IN LAST 30 DAYS: No - HPI Notes: Patient is a 26-year-old male with a history of palpitations who presents to the ED for the second time tonight complaining of continued palpitations. He was evaluated by Dr. Cid earlier and was advised to stop his atenolol and to follow-up with cardiology tomorrow for possible Holter monitor. Patient was evaluated in June for palpitations as well he was taking a hormone booster at that time and was found to have hyperthyroidism because of it. Patient states that he is still eating and drinking without difficulties. He is urinating normally and having normal bowel moods. He has no other concerns or complaints at this time. Denies any headache, fever, neck pain, URI, sore throat, chest pain, syncope, cough, shortness of breath, wheeze, dyspnea, abdominal pain, nausea/vomiting/diarrhea, urinary retention, dysuria, hematuria, loss of control of bowel or bladder, numbness/tingling, saddle anesthesia, muscle paralysis/weakness, or rash. - Related Data Allergies/Adverse Reactions: No Known Allergies Allergy (Verified 04/19/17 14:12) Past Medical History - Social History Smoking Status: Unknown if Ever Smoked Chew tobacco use (# tins/day): No Frequency of alcohol use: None Drug Abuse: None Family History: Reviewed & Not Pertinent Patient has suicidal ideation: No Patient has homicidal ideation: No Pulmonary Medical History: Reports: Hx Asthma Renal/ Medical History: Denies: Hx Peritoneal Dialysis - Immunizations Immunizations up to date: Yes Hx Diphtheria, Pertussis, Tetanus Vaccination: Yes Review of Systems - Review of Systems -: Yes All other systems reviewed and negative Physical Exam - Vital signs Vitals: Temp Pulse Resp BP Pulse Ox 97.6 F 61 16 139/85 H 100 09/02/17 01:37 09/02/17 01:37 09/02/17 01:37 09/02/17 01:37 09/02/17 01:37 - Notes Notes: PHYSICAL EXAMINATION: GENERAL: Well-appearing, well-nourished and in no acute distress. HEAD: Atraumatic, normocephalic. EYES: Pupils equal round and reactive to light, extraocular movements intact, sclera anicteric, conjunctiva are normal. ENT: Nares patent and without discharge. oropharynx clear without exudates. No tonsilar hypertrophy or erythema. Moist mucous membranes. NECK: Normal range of motion, supple without lymphadenopathy LUNGS: Breath sounds clear to auscultation bilaterally and equal. No wheezes rales or rhonchi. HEART: Regular rate and rhythm without murmurs, rubs, gallops. ABDOMEN: Soft, nontender, nondistended abdomen. No guarding, no rebound. No masses appreciated. Normal bowel sounds present. No CVA tenderness bilaterally. Musculoskeletal: FROM to passive/active. Strength 5+/5. Extremities: No cyanosis, clubbing, or edema b/l. Peripheral pulses 2+. Capillary refill less than 3 seconds. NEUROLOGICAL: Cranial nerves grossly intact. Normal speech, normal gait. Normal sensory, motor exams PSYCH: Normal mood, normal affect. SKIN: Warm, Dry, normal turgor, no rashes or lesions noted. Course - Re-evaluation Re-evalutation: 09/02/17 04:25 Patient is an afebrile, well-hydrated, 26-year-old male who presents to the ED with palpitations, unspecified. Vitals are acceptable. PE is otherwise unremarkable. He did not have any irregular rhythm or tachycardia during his stay in the emergency department again for this visit. He has no tachypnea or hypoxia. He is nontoxic-appearing. He is sleeping comfortably during half of his stay. He is tolerating p.o. without any difficulties. CBC, CMP, urinalysis , urine drug screen were unremarkable for any acute pathology. Patient had a thyroid panel performed just prior to this visit. Patient is to refrain from his atenolol as previously instructed. Patient to call Dr. Shannon in the morning for further evaluation and management. Recheck with your PCM in 3-5 days. Return to the ED with any worsening/concerning symptoms otherwise as reviewed discharge. Patient is in agreement. Case reviewed with Dr. Cid who is also in agreement with dispo/plan. - Vital Signs Vital signs: Temp Pulse Resp BP Pulse Ox 97.6 F 61 12 113/69 100 09/02/17 01:37 09/02/17 01:37 09/02/17 04:01 09/02/17 04:01 09/02/17 04:01 - Laboratory Result Diagrams: 09/02/17 03:23 09/02/17 03:23 Laboratory results interpreted by me: 09/02/17 09/02/17 09/02/17 03:15 03:23 03:23 WBC 13.3 H Absolute Neutrophils 10.2 H Sodium 145.4 H Urine Ascorbic Acid 20 H Discharge - Discharge Clinical Impression: Palpitations Condition: Stable Disposition: HOME, SELF-CARE Additional Instructions: Maintain adequate fluid and food intake Take home medications as directed healthy diet Exercise regularly Weight control Monitor blood pressure daily and keep a log Monitor symptoms for any acute changes Recheck with your PCM in 3-5 days Call the data warehousing architect tomorrow to schedule an appointment for further evaluation and management Return to the ED with any worsening symptoms and/or development of fever, headache, chest pain, palpitations, syncope, shortness of breath, trouble breathing, abdominal pain, n/v/d, blood in stool/urine, loss of control of bowel /bladder, urinary retention, muscle weakness/paralysis, numbness/tingling, or other worsening symptoms that are concerning to you. Referrals: TESSY SHANNON MD [ACTIVE STAFF] - Follow up in 3-5 days (call tomorrow to schedule an appointment)
[2017-09-02 03:27] LABS: APPEARANCE,URINE CLEAR; BILIRUBIN,URINE NEGATIVE (NEGATIVE); COLOR,URINE YELLOW; GLUCOSE, URINE NEGATIVE (NEGATIVE); KETONES,URINE NEGATIVE (NEGATIVE); LEUKOCYTE ESTERASE,URINE NEGATIVE (NEGATIVE); NITRITE,URINE NEGATIVE (NEGATIVE); PROTEIN,URINE NEGATIVE (NEGATIVE); URINE SPECIFIC GRAVITY 1.006; UROBILINOGEN,URINE NEGATIVE mg/dL (<2.0)
[2017-09-02 03:37] LABS: ABSOLUTE EOSINOPHILS # (AUTO) 0.1 10^3/uL (0.0-0.6); ABSOLUTE LYMPHOCYTES (AUTO) 1.9 10^3/uL (0.5-4.7); ABSOLUTE NEUT (AUTO) 10.2 10^3/uL (1.7-8.2); BASOPHILS % (AUTO) 0.4 % (0-2); EOSINOPHILS % (AUTO) 0.8 % (0-6); HEMATOCRIT 43.5 % (37.9-51.0); HEMOGLOBIN 15.1 g/dL (13.5-17.0); LYMPHOCYTES % (AUTO) 14.4 % (13-45); MEAN CORPUSCULAR HEMOGLOBIN 30.3 pg (27.0-33.4); MEAN CORPUSCULAR HGB CONC 34.6 g/dL (32.0-36.0); MEAN CORPUSCULAR VOLUME 88 fl (80-97); MONOCYTES % (AUTO) 7.5 % (3-13); PLATELET COUNT 280 10^3/uL (150-450); RED BLOOD COUNT 4.97 10^6/uL (4.35-5.55); SEGMENTED NEUTROPHILS % (AUTO) 76.9 % (42-78); TOTAL CELLS COUNTED % (AUTO) 100 %; WHITE BLOOD COUNT 13.3 10^3/uL (4.0-10.5)
[2017-09-02 03:40] LABS: ALANINE AMINOTRANSFERASE 46 U/L (21-72); ALBUMIN 4.7 g/dL (3.5-5.0); ALKALINE PHOSPHATASE 85 U/L (38-126); ANION GAP 11 (5-19); ASPARTATE AMINO TRANSFERASE 33 U/L (17-59); BILIRUBIN,DIRECT 0.3 mg/dL (0.0-0.4); BILIRUBIN,TOTAL 0.6 mg/dL (0.2-1.3); BLOOD UREA NITROGEN 14 mg/dL (7-20); CALCIUM 9.8 mg/dL (8.4-10.2); CARBON DIOXIDE 29 mmol/L (22-30); CHLORIDE 105 mmol/L (98-107); GLUCOSE 106 mg/dL (75-110); POTASSIUM 3.9 mmol/L (3.6-5.0); SODIUM 145.4 mmol/L (137-145); TOTAL PROTEIN 7.9 g/dL (6.3-8.2)
[2017-09-02 03:41] LABS: URINE AMPHETAMINES SCREEN NEGATIVE; URINE BARBITURATES SCREEN NEGATIVE; URINE BENZODIAZEPINES SCREEN NEGATIVE; URINE COCAINE SCREEN NEGATIVE; URINE MARIJUANA (THC) SCREEN NEGATIVE; URINE METHADONE SCREEN NEGATIVE; URINE PHENCYCLIDINE SCREEN NEGATIVE
[2017-09-02 04:07] VITALS: BP 113/69
--- NOTE | 2017-09-04 16:14 | EKG REPORT ---
SEVERITY:- ABNORMAL ECG - SINUS RHYTHM IVCD, CONSIDER ATYPICAL RBBB : Confirmed by: Jennifer Bonilla 04-Sep-2017 16:13:44
== END 2017-09-02 04:28 | disposition home or self-care (01) ==
LOC: ER 00:41
DX: R00.2 Palpitations (principal)
CPT/HCPCS: 36415; 80053; 80307; 81001; 83735; 85025; 93005; 93010; 99285

== ENCOUNTER 2017-09-03 22:31 | Emergency (ER) | payer SELFPAY ==
--- NOTE | 2017-09-03 23:51 | ER Document Report ---
ED General - General Chief Complaint: Chest Tightness Stated Complaint: CHEST TIGHTNESS Time Seen by Provider: 09/03/17 23:12 Notes: Patient is a 26-year-old male well-known to this emergency department who presents with complaints of chest tightness and palpitations past several hours. Patient has had multiple visits to the emergency department with the same symptoms with reassuring workups under all of those visits. He does admit to continuing to use pre-workouts but is uncertain whether or not this is contributing to his symptoms. Nothing seems to improve his symptoms. He describes the sensation as being a heaviness or pressure in the left side of his chest with associated feelings of palpitations but states when he checks his heart rate is consistently low. He has been continue to take atenolol that have been prescribed by his primary care doctor but does not feel that this is helping his symptoms. He does admit to some anxiety and feels like this may be contributing to his symptoms. He denies any shortness of breath, syncope, fever or constitutional symptoms. TRAVEL OUTSIDE OF THE [place] IN LAST 30 DAYS: No - Related Data Allergies/Adverse Reactions: No Known Allergies Allergy (Verified 04/19/17 14:12) Past Medical History - General Information source: Patient - Social History Smoking Status: Never Smoker Frequency of alcohol use: None Drug Abuse: None Lives with: Family Family History: Reviewed & Not Pertinent Pulmonary Medical History: Reports: Hx Asthma Renal/ Medical History: Denies: Hx Peritoneal Dialysis - Immunizations Immunizations up to date: Yes Hx Diphtheria, Pertussis, Tetanus Vaccination: Yes Review of Systems - Review of Systems Notes: Constitutional: Negative for fever. HENT: Negative for sore throat. Eyes: Negative for visual changes. Cardiovascular: Positive for chest pain. Respiratory: Negative for shortness of breath. Gastrointestinal: Negative for abdominal pain, vomiting or diarrhea. Genitourinary: Negative for dysuria. Musculoskeletal: Negative for back pain. Skin: Negative for rash. Neurological: Negative for headaches, weakness or numbness. 10 point ROS negative except as marked above and in HPI. Physical Exam - Vital signs Vitals: Temp Pulse Resp BP Pulse Ox 97.9 F 56 L 16 120/71 100 09/03/17 22:43 09/03/17 22:43 09/03/17 22:43 09/03/17 22:43 09/03/17 22:43 Interpretation: Bradycardic Notes: PHYSICAL EXAMINATION: GENERAL: Well-appearing, well-nourished and in no acute distress. HEAD: Atraumatic, normocephalic. EYES: Pupils equal round and reactive to light, extraocular movements intact, sclera anicteric, conjunctiva are normal. ENT: nares patent, oropharynx clear without exudates. Moist mucous membranes. NECK: Normal range of motion, supple without lymphadenopathy LUNGS: Breath sounds clear to auscultation bilaterally and equal. No wheezes rales or rhonchi. HEART: Regular bradycardia without murmurs ABDOMEN: Soft, nontender, normoactive bowel sounds. No guarding, no rebound. No masses appreciated. EXTREMITIES: Normal range of motion, no pitting or edema. No cyanosis. NEUROLOGICAL: No focal neurological deficits. Moves all extremities spontaneously and on command. PSYCH: Mildly anxious SKIN: Warm, Dry, normal turgor, no rashes or lesions noted. Course - Re-evaluation Re-evalutation: 09/03/17 23:45 Presentation of a well-appearing male in no distress complaining of intermittent palpitations, chest heaviness, and anxiety. Patient has been seen in the emergency department repeatedly for this complaint had repeated workups that remained normal. Patient again admits to continuing to use supplements from [id number] including pre-workout supplements. I had an extensive conversation with the patient about the dangers of these substances and have reviewed with him appropriate weight lifting regimens and approaches that would not involve using these supplements which are clearly participating in his symptoms. His EKG is unremarkable. I do not see any indication for repeat blood work today. The patient has given me his word and shook my hand that he will not use these medications ever again and that he will stick to safe substances such as creatine, supplemental protein, as well as caffeine pills or coffee. I have instructed him to discontinue atenolol as it is persistently making him bradycardic and I do not believe he would need this medication as every time he has come in complaining of palpitations he has never once been tachycardic or been shown to have premature ventricular contractions on his EKGs. At this time will discharge with return precautions and follow-up recommendations. Verbal discharge instructions given a the bedside and opportunity for questions given. Medication warnings reviewed. Patient is in agreement with this plan and has verbalized understanding of return precautions and the need for primary care follow-up in the next 24-72 hours. - Vital Signs Vital signs: Temp Pulse Resp BP Pulse Ox 98.6 F 53 L 16 124/72 100 09/04/17 01:09 09/04/17 01:09 09/04/17 01:09 09/04/17 01:09 09/04/17 01:09 - EKG Interpretation by Me Additional EKG results interpreted by me: 09/03/17 23:48 Sinus rhythm. Rate 54. No ST elevations or depressions. QTC is 398. Discharge - Discharge Clinical Impression: Palpitations, Chest discomfort Condition: Good Disposition: HOME, SELF-CARE Additional Instructions: STOP ALL PREWORK OUTS. YOU DO NOT NEED THESE SUBSTANCES TO HAVE GOOD WORKOUTS OR GAIN MUSCLE MASS. What I take prior to workout: 1.) 200mg of caffeine, pill form 2.) 5 g of creatine 3.) 20-30 g of protein 4.) Easily digested carbohydrate such as a banana, a glass of chocolate milk, or package of crackers What I take after workout: 1.) Protein shake 2.) Plenty of water You do not need to take anything else beyond this to achieve appropriate results in the setting of lifting weights. The medications that you have been taking are certainly contributing to the recurrence of your symptoms of chest heaviness and palpitations. Please also discontinue atenolol as you do not need this medication. Return if you develop chest pain, shortness of breath, pass out, or have any other symptoms that are worrisome to you.
[2017-09-04 01:10] VITALS: BP 124/72
== END 2017-09-04 01:10 | disposition home or self-care (01) ==
LOC: ER 22:31
DX: R07.89 Other chest pain (principal); R00.2 Palpitations; F41.9 Anxiety disorder, unspecified; J45.909 Unspecified asthma, uncomplicated; R00.1 Bradycardia, unspecified; Z79.899 Other long term (current) drug therapy
CPT/HCPCS: 99284

== ENCOUNTER 2017-09-06 21:44 | Emergency (ER) | payer SELFPAY ==
--- NOTE | 2017-09-06 23:42 | ER Document Report ---
ED General - General Chief Complaint: Chest Pain Stated Complaint: CHEST PAIN Time Seen by Provider: 09/06/17 23:19 Notes: Patient is a 26-year-old male that comes to the emergency department for chief complaint palpitations. He states that about 15 side today he will fairly regular heartbeat, sometimes he feels a discomfort in his chest, sometimes he feels flushed patient is. He denies dizziness, passing out, shortness of breath. He states that he thinks he might be having a thyroid storm. He had patient with an abnormal thyroid panel recently which showed an elevated T3, he was placed on atenolol 50 mg by his primary, he was recommended after being seen here multiple times to get off of his atenolol because of his bradycardia, he states he saw his primary again and they put him on 25 mg which she is currently taking. He denies taking any supplements currently, he denies current caffeine, he denies recreational drugs. He denies any other medical history. TRAVEL OUTSIDE OF THE [place] IN LAST 30 DAYS: No - Related Data Allergies/Adverse Reactions: lorazepam [From Ativan] Adverse Reaction (Verified 09/06/17 22:29) Anxiety Past Medical History - General Information source: Patient - Social History Smoking Status: Never Smoker Frequency of alcohol use: None Drug Abuse: None Lives with: Spouse/Significant other Family History: Reviewed & Not Pertinent Patient has suicidal ideation: No Patient has homicidal ideation: No Pulmonary Medical History: Reports: Hx Asthma Renal/ Medical History: Denies: Hx Peritoneal Dialysis Surgical Hx: Negative - Immunizations Immunizations up to date: Yes Hx Diphtheria, Pertussis, Tetanus Vaccination: Yes Review of Systems - Review of Systems Constitutional: No symptoms reported EENT: No symptoms reported Cardiovascular: See HPI Respiratory: No symptoms reported Gastrointestinal: No symptoms reported Genitourinary: No symptoms reported Male Genitourinary: No symptoms reported Musculoskeletal: No symptoms reported Skin: No symptoms reported Hematologic/Lymphatic: No symptoms reported Neurological/Psychological: No symptoms reported Physical Exam - Vital signs Vitals: Temp Pulse Resp BP Pulse Ox 98.3 F 55 L 16 130/68 H 100 09/06/17 22:21 09/06/17 22:21 09/06/17 22:21 09/06/17 22:21 09/06/17 22:21 - Notes Notes: GENERAL: Alert, interacts well. No acute distress. HEAD: Normocephalic, atraumatic. EYES: Pupils equal, round, and reactive to light. Extraocular movements intact. ENT: Oral mucosa moist, tongue midline. NECK: Full range of motion. Supple. Trachea midline. LUNGS: Clear to auscultation bilaterally, no wheezes, rales, or rhonchi. No respiratory distress. HEART: Regular rate and rhythm. No murmur ABDOMEN: Soft, non-tender. Non-distended. Bowel sounds present in all 4 quadrants. EXTREMITIES: Moves all 4 extremities spontaneously. No edema, normal radial and dorsalis pedis pulses bilaterally. No cyanosis. BACK: no cervical, thoracic, lumbar midline tenderness. No saddle anesthesia, normal distal neurovascular exam. NEUROLOGICAL: Alert and oriented x3. Normal speech. [cranial nerves II through XII grossly intact]. PSYCH: Normal affect, normal mood. SKIN: Warm, dry, normal turgor. No rashes or lesions noted. Course - Re-evaluation Re-evalutation: EKG shows right bundle branch block, no change from prior, unremarkable QTC and FL interval, no PACs or PVCs. Patient without current symptoms on my evaluation. CBC, chemistry unremarkable. Patient's recent TSH was actually slightly elevated, T3 had basically normalized, this was performed a couple of days ago. No tachycardia, on physical exam patient appears calm and relaxed, vital signs show mild bradycardia, lowest heart rate noted on monitoring was 49. Discussed with patient, but did recommend that he stop taking the atenolol because of his bradycardia, discussed cardiac follow-up for Holter monitor, discussed endocrinology follow-up which he already has. Patient has no other questions, states he is ready to leave. - Vital Signs Vital signs: Temp Pulse Resp BP Pulse Ox 98.3 F 55 L 16 123/78 100 09/06/17 22:21 09/06/17 22:21 09/07/17 01:00 09/07/17 01:00 09/07/17 00:59 - Laboratory Result Diagrams: 09/06/17 23:45 09/06/17 23:45 Laboratory results interpreted by me: 09/06/17 23:45 Sodium 147.3 H Discharge - Discharge Clinical Impression: Heart palpitations Condition: Stable Disposition: HOME, SELF-CARE Additional Instructions: Your monitoring shows low heart rate (bradycardia), this is probably from the atenolol. Recommendation is to stop the atenolol. Remaining evaluation and workup is normal. Your most recent thryroid panel showed significantly improvement. Followup with the [facility] as planned for additional management. Follow up with Dr. Shannon (call the referral to set this up), Front Office Associate, for evaluation of possible episodes of arrhythmia. Return for any concerning symptoms - difficulty breathing, chest pain, passing out, or any other concerning symptoms. Referrals: TESSY SHANNON MD [ACTIVE STAFF] - Follow up in 3-5 days
[2017-09-06 23:55] LABS: ABSOLUTE EOSINOPHILS # (AUTO) 0.1 10^3/uL (0.0-0.6); ABSOLUTE LYMPHOCYTES (AUTO) 2.8 10^3/uL (0.5-4.7); ABSOLUTE MONOCYTES (AUTO) 0.8 10^3/uL (0.1-1.4); ABSOLUTE NEUT (AUTO) 4.5 10^3/uL (1.7-8.2); BASOPHILS % (AUTO) 0.6 % (0-2); EOSINOPHILS % (AUTO) 1.5 % (0-6); HEMATOCRIT 42.6 % (37.9-51.0); HEMOGLOBIN 14.7 g/dL (13.5-17.0); LYMPHOCYTES % (AUTO) 33.9 % (13-45); MEAN CORPUSCULAR HEMOGLOBIN 30.5 pg (27.0-33.4); MEAN CORPUSCULAR HGB CONC 34.4 g/dL (32.0-36.0); MEAN CORPUSCULAR VOLUME 89 fl (80-97); MONOCYTES % (AUTO) 9.2 % (3-13); PLATELET COUNT 282 10^3/uL (150-450); RED BLOOD COUNT 4.81 10^6/uL (4.35-5.55); SEGMENTED NEUTROPHILS % (AUTO) 54.8 % (42-78); TOTAL CELLS COUNTED % (AUTO) 100 %; WHITE BLOOD COUNT 8.2 10^3/uL (4.0-10.5)
[2017-09-07 00:08] LABS: ANION GAP 12 (5-19); BLOOD UREA NITROGEN 9 mg/dL (7-20); CALCIUM 9.8 mg/dL (8.4-10.2); CARBON DIOXIDE 30 mmol/L (22-30); CHLORIDE 105 mmol/L (98-107); GLUCOSE 93 mg/dL (75-110); POTASSIUM 4.3 mmol/L (3.6-5.0); SODIUM 147.3 mmol/L (137-145)
[2017-09-07 01:08] VITALS: BP 123/78
--- NOTE | 2017-09-07 07:14 | EKG REPORT ---
SEVERITY:- ABNORMAL ECG - SINUS RHYTHM INCOMPLETE RIGHT BUNDLE BRANCH BLOCK : Confirmed by: Mickey Rodríguez MD 07-Sep-2017 07:14:17
== END 2017-09-07 01:08 | disposition home or self-care (01) ==
LOC: ER 21:44
DX: R07.9 Chest pain, unspecified (principal); R00.2 Palpitations
CPT/HCPCS: 36415; 80048; 85025; 93005; 93010; 99285

== ENCOUNTER 2017-09-09 03:51 | Emergency (ER) | payer SELFPAY ==
[2017-09-09 04:03] VITALS: BP 136/77
--- NOTE | 2017-09-09 07:17 | EKG REPORT ---
SEVERITY:- ABNORMAL ECG - SINUS RHYTHM INCOMPLETE RIGHT BUNDLE BRANCH BLOCK : Confirmed by: Mickey Rodríguez MD 09-Sep-2017 07:17:10
== END 2017-09-09 04:45 | disposition left against medical advice (07) ==
LOC: ER 03:51
DX: Z53.21 Procedure and treatment not carried out due to patient leaving prior to being seen by health care provider (principal)
CPT/HCPCS: 93005; 93010

== ENCOUNTER 2017-09-09 21:00 | Emergency (ER) | payer SELFPAY ==
[2017-09-09 21:36] VITALS: BP 157/79
--- NOTE | 2017-09-09 22:09 | ER Document Report ---
ED General - General Chief Complaint: Palpitations Stated Complaint: CHEST PAIN Time Seen by Provider: 09/09/17 21:55 Notes: Patient is a 26-year-old male comes emergency department for chief complaint of an episode earlier where he felt like his heart was racing, he had pain in his chest, he felt short of breath, and he thought he was having a heart attack. Patient was recently taken off of atenolol which she was taking for palpitations and possible hyperthyroidism, he was placed on propanolol instead because his heart rate was going too low, he states he did take it earlier today. Patient was referred to cardiology to get a Holter monitor because of complaints of palpitations although he has not seen them yet. He has a pending follow-up with endocrinology to recheck his thyroid panel because of a slightly abnormal recent thyroid panel which was rechecked and improved. He denies smoking, denies any recreational drugs including cocaine or methamphetamine, he states he has not taken any supplements since the original ones that might have messed up his thyroid panel as he was told previously. TRAVEL OUTSIDE OF THE [place] IN LAST 30 DAYS: No - Related Data Allergies/Adverse Reactions: lorazepam [From Ativan] Adverse Reaction (Verified 09/06/17 22:29) Anxiety Past Medical History - General Information source: Patient - Social History Smoking Status: Never Smoker Frequency of alcohol use: None Drug Abuse: None Lives with: Family Family History: Reviewed & Not Pertinent Pulmonary Medical History: Reports: Hx Asthma Renal/ Medical History: Denies: Hx Peritoneal Dialysis Surgical Hx: Negative - Immunizations Immunizations up to date: Yes Hx Diphtheria, Pertussis, Tetanus Vaccination: Yes Review of Systems - Review of Systems Constitutional: No symptoms reported EENT: No symptoms reported Cardiovascular: See HPI Respiratory: No symptoms reported Gastrointestinal: No symptoms reported Genitourinary: No symptoms reported Male Genitourinary: No symptoms reported Musculoskeletal: No symptoms reported Skin: No symptoms reported Hematologic/Lymphatic: No symptoms reported Neurological/Psychological: See HPI Physical Exam - Vital signs Vitals: Temp Pulse Resp BP Pulse Ox 98.7 F 90 14 157/79 H 100 09/09/17 21:35 09/09/17 21:35 09/09/17 21:35 09/09/17 21:35 09/09/17 21:35 Interpretation: Normal - General General appearance: Appears well, Alert In distress: None - HEENT Head: Normocephalic, Atraumatic Eyes: Normal Conjunctiva: Normal Extraocular movements intact: Yes Eyelashes: Normal Pupils: PERRL - slightly dilated Mouth/Lips: Normal Mucous membranes: Normal Pharynx: Normal Neck: Normal - Respiratory Respiratory status: No respiratory distress Chest status: Nontender. No: Tender Breath sounds: Normal. No: Decreased air movement, Wheezing Chest palpation: Normal - Cardiovascular Rhythm: Regular. No: Tachycardia Heart sounds: Normal auscultation, S1 appreciated, S2 appreciated Murmur: No - Abdominal Inspection: Normal Distension: No distension Bowel sounds: Normal Tenderness: Nontender. No: Tender, Guarding Organomegaly: No organomegaly - Back Back: Normal, Nontender. No: Tender - Extremities General upper extremity: Normal inspection, Nontender, Normal color, Normal ROM , Normal temperature General lower extremity: Normal inspection, Nontender, Normal color, Normal ROM , Normal temperature, Normal weight bearing. No: Edema, Paul's sign - Neurological Neuro grossly intact: Yes Cognition: Normal Orientation: AAOx4 [place] Coma Scale Eye Opening: Spontaneous Aro[place]o Coma Scale Verbal: Oriented [place] Coma Scale Motor: Obeys Commands [place] Coma Scale Total: 15 Speech: Normal Motor strength normal: LUE, RUE, LLE, RLE Sensory: Normal - Psychological Associated symptoms: Other - Patient slightly nervous in appearance, occasionally has mouth quivers when he speaks, his pupils are slightly dilated, he speaks nervously and suddenly laughs frequently. - Skin Skin Temperature: Warm Skin Moisture: Dry Skin Color: Normal Course - Re-evaluation Re-evalutation: Patient has been to the emergency department for similar symptoms like tonight 7 times now. He has had blood workup no recent direct now, multiple x-rays, multiple EKGs. He has been placed on the monitor for extended periods with no noted arrhythmia by myself and other providers here. EKG showing partial right bundle block which is unchanged from prior. Patient denies any family history of CA. Chest x-ray is unremarkable. Patient denies any recreational drugs. Discussed with patient at bedside. Discussed possible causes of chest pain, and I discussed how at this time his symptoms are more suggestive of a panic attack that CA, PE, pericarditis, dissection or other acute intrathoracic etiology are unlikely based on his risk factors, age, symptoms, evaluation, and previous evaluations. Patient already has a follow up with cardiology and with endocrinology on the first week of June. Encouraged him to follow through with these. I also encouraged him that he consider a therapist since he has already been given medication for anxiety and because of his symptoms and workup/ evaluation. Patient appeared unhappy with this instruction. I asked if he had any more questions. Will d/c with recommendations. Patient now is telling me that his mom had a heart attack at 25 years old, I asked why he did not inform me of this before and questioned the truth of this now after I have seen him several times and was unaware of this. Patient's sister came into the room and repeats that their mother had an CA at the age of 25. Unsure of catheterization or stent status. Sister states that she had an CA and she is in her 20s. She denies a cardiac catheterization or stent, states she was admitted to a hospital and put on metoprolol. At this point of discussion I recommended we cycle a troponin because of the reported family history. Nurse came and informed me that now the troponin was declined and that patient, sister, and friend had decided to leave. - Vital Signs Vital signs: Temp Pulse Resp BP Pulse Ox 98.7 F 90 14 157/79 H 100 09/09/17 21:35 09/09/17 21:35 09/09/17 21:35 09/09/17 21:35 09/09/17 21:35 Discharge - Discharge Clinical Impression: Panic attack, Anxiety Chest pain Qualifiers: Chest pain type: unspecified Qualified Code(s): R07.9 - Chest pain, unspecified Condition: Stable Disposition: HOME, SELF-CARE Additional Instructions: Your evaluation here tonight does not show any concerning abnormalities. Your examination and symptoms are consistent with a panic attack. Continue current medications, see instructions listed below, consider primary care referral or treatment for anxiety. Follow up with your Cardiology and Endocrinology appointments for additional workup and management. Return for any concerning symptoms including passing out, fever, difficulty breathing, or any other concerning symptoms. Panic Attack The cause of panic attacks is unknown. Symptoms can include chest pain, shortness of breath, palpitations, sweats, and a sense of smothering or impending doom. In time, the panic attacks can lead to generalized anxiety and phobias. Because the symptoms can mimic heart attack, pulmonary embolism, and other serious diseases, the physician has evaluated you for these conditions. There is no evidence of a serious problem. An acute panic attack usually goes away by itself without treatment. A severe attack can be treated with medicine to calm you. Long-term, antidepressant medicines may help prevent attacks. Counselling can also be very beneficial in dealing with panic attacks. Panic attacks are less likely if you are getting regular exercise, proper diet, and plenty of sleep. It's normal for panic attacks to cause many frightening symptoms. However, you should call or return if your symptoms change significantly or if you are worsening.
--- NOTE | 2017-09-09 22:32 | RADIOLOGY REPORT (SQ) ---
EXAM DESCRIPTION: CHEST 2 VIEWS COMPLETED DATE/TIME: 09/09/2017 10:23 pm REASON FOR STUDY: chest pain COMPARISON: 09/01/2017 EXAM PARAMETERS: NUMBER OF VIEWS: two views TECHNIQUE: Digital Frontal and Lateral radiographic views of the chest acquired. RADIATION DOSE: NA LIMITATIONS: none FINDINGS: LUNGS AND PLEURA: No opacities, masses or pneumothorax. No pleural effusion. MEDIASTINUM AND HILAR STRUCTURES: No masses or contour abnormalities. HEART AND VASCULAR STRUCTURES: Heart normal size. No evidence for failure. BONES: No acute findings. HARDWARE: None in the chest. OTHER: No other significant finding. IMPRESSION: NO ACUTE RADIOGRAPHIC FINDING IN THE CHEST. TECHNICAL DOCUMENTATION: JOB ID: [id number] [place]-72 2010 [employer]- All Rights Reserved Reading location - IP/workstation name: [facility]
--- NOTE | 2017-09-10 07:02 | EKG REPORT ---
SEVERITY:- ABNORMAL ECG - SINUS RHYTHM INCOMPLETE RIGHT BUNDLE BRANCH BLOCK : Confirmed by: Mickey Rodríguez MD 10-Sep-2017 07:01:57
== END 2017-09-09 23:13 | disposition home or self-care (01) ==
LOC: ER 21:00
DX: F41.0 Panic disorder [episodic paroxysmal anxiety] (principal); R00.2 Palpitations; R07.9 Chest pain, unspecified; R06.02 Shortness of breath
CPT/HCPCS: 71046; 93005; 93010; 99285

== ENCOUNTER 2017-11-10 03:18 | Emergency (ER) | payer SELFPAY ==
--- NOTE | 2017-11-10 05:26 | ER Document Report ---
ED Medical Screen (RME) - General Chief Complaint: Chest Pain Stated Complaint: CHEST PAIN Time Seen by Provider: 11/10/17 04:54 Mode of Arrival: Ambulatory Information source: Patient Notes: Patient is a 26-year-old male who presents with chief complaint of midsternal chest pain that started at approximately midnight. Patient reports that he took pre-workouts, then went for a run at 11:30 PM. Patient reports the pain started right after that. Patient reports this pain feels like a sharp stabbing sensation. Patient denies any nausea, vomiting or radiation of the pain. Patient has been seen in this emergency department multiple times for the same reason all with negative workups. Patient is denying any cardiac history. Exam: Tenderness to palpation to lower sternum. I have greeted and performed a rapid initial assessment of this patient. A comprehensive ED assessment and evaluation of the patient, analysis of test results and completion of the medical decision making process will be conducted by additional ED providers. Dictation of this chart was performed using voice recognition software; therefore, there may be some unintended grammatical errors. TRAVEL OUTSIDE OF THE [place] IN LAST 30 DAYS: No - Related Data Allergies/Adverse Reactions: lorazepam [From Ativan] Adverse Reaction (Verified 09/06/17 22:29) Anxiety Past Medical History Pulmonary Medical History: Reports: Hx Asthma Renal/ Medical History: Denies: Hx Peritoneal Dialysis - Immunizations Immunizations up to date: Yes Hx Diphtheria, Pertussis, Tetanus Vaccination: Yes Physical Exam - Vital signs Vitals: Temp Pulse Resp BP Pulse Ox 97.9 F 72 18 156/97 H 98 11/10/17 03:24 11/10/17 03:24 11/10/17 03:24 11/10/17 03:24 11/10/17 03:24 Course - Vital Signs Vital signs: Temp Pulse Resp BP Pulse Ox 97.9 F 72 13 127/77 H 98 11/10/17 03:24 11/10/17 03:24 11/10/17 04:04 11/10/17 04:04 11/10/17 03:24 Doctor's Discharge - Discharge Referrals: PARTH NAVARRO MD [Primary Care Provider] - Follow up as needed
--- NOTE | 2017-11-10 05:35 | RADIOLOGY REPORT (SQ) ---
EXAM DESCRIPTION: XR CHEST 2 VIEWS COMPLETED DATE/TME: 11/10/2017 05:08 CLINICAL HISTORY: chest pain COMPARISON: 09/09/2017 FINDINGS: Frontal and lateral views of the chest. The cardiomediastinal silhouette has normal size and contour. No consolidation, pneumothorax, or pleural effusion. No displaced rib fractures identified. Leads overlie the chest. Upper abdominal soft tissues are unremarkable. IMPRESSION: 1. No acute pulmonary process identified.
--- NOTE | 2017-11-10 06:22 | ER Document Report ---
ED General - General Chief Complaint: Chest Pain Stated Complaint: CHEST PAIN Time Seen by Provider: 11/10/17 04:54 Mode of Arrival: Ambulatory Notes: 26-year-old male to emergency department chief complaint of chest pain, anxiety , hypothyroidism. Patient states that he has a history of hyperthyroidism which is caused anxiety and chest pain in the past. Is not on any therapy at this time because gum sprayer said that everything had normalized. Takes his atenolol. Had some flushing of the face in some tightness in the chest. Gets really anxious when this happens so came to the emergency department. Currently his chest pain is resolved. Denies any shortness of breath, fever, chills, sweats or other issues at this time. Denies any recent weight loss. Denies any tachycardia recently. TRAVEL OUTSIDE OF THE [place] IN LAST 30 DAYS: No - HPI Onset: Just prior to arrival Onset/Duration: Gradual - Related Data Allergies/Adverse Reactions: lorazepam [From Ativan] Adverse Reaction (Verified 09/06/17 22:29) Anxiety Past Medical History - General Information source: Patient - Social History Smoking Status: Never Smoker Cigarette use (# per day): No Frequency of alcohol use: None Drug Abuse: None Lives with: Family Family History: Reviewed & Not Pertinent Patient has suicidal ideation: No Patient has homicidal ideation: No Pulmonary Medical History: Reports: Hx Asthma Endocrine Medical History: Reports: Hx Hyperthyroidism Renal/ Medical History: Denies: Hx Peritoneal Dialysis - Immunizations Immunizations up to date: Yes Hx Diphtheria, Pertussis, Tetanus Vaccination: Yes Review of Systems - Review of Systems Constitutional: denies: Chills, Diaphoresis, Fever, Malaise, Weakness, Weight loss EENT: denies: Eye pain, Difficulty swallowing, Throat swelling, Mouth pain Cardiovascular: Chest pain, Palpitations. denies: Heart racing, Orthopnea, Dyspnea Respiratory: denies: Cough, Hurts to breathe, Hemoptysis, Short of breath, Wheezing Gastrointestinal: denies: Abdominal pain, Diarrhea, Nausea, Vomiting Genitourinary: denies: Burning, Dysuria, Discharge Musculoskeletal: denies: Back pain, Joint pain, Joint swelling, Muscle pain Skin: denies: Change in color, Dryness, Lesions, Lumps, Rash Neurological/Psychological: Anxiety. denies: Confusion, Weakness, Numbness Physical Exam - Vital signs Vitals: Temp Pulse Resp BP Pulse Ox 97.9 F 72 18 156/97 H 98 11/10/17 03:24 11/10/17 03:24 11/10/17 03:24 11/10/17 03:24 11/10/17 03:24 Interpretation: Normal - General General appearance: Appears well, Alert - HEENT Head: Normocephalic, Atraumatic Eyes: Normal Pupils: PERRL - Respiratory Respiratory status: No respiratory distress Chest status: Nontender Breath sounds: Normal Chest palpation: Normal - Cardiovascular Rhythm: Regular Heart sounds: Normal auscultation Murmur: No - Abdominal Inspection: Normal Distension: No distension Bowel sounds: Normal Tenderness: Nontender Organomegaly: No organomegaly - Back Back: Normal, Nontender - Extremities General upper extremity: Normal inspection, Nontender, Normal color, Normal ROM , Normal temperature General lower extremity: Normal inspection, Nontender, Normal color, Normal ROM , Normal temperature, Normal weight bearing. No: Paul's sign - Neurological Neuro grossly intact: Yes Cognition: Normal Orientation: AAOx4 [place] Coma Scale Eye Opening: Spontaneous [place] Coma Scale Verbal: Oriented [place] Coma Scale Motor: Obeys Commands [place] Coma Scale Total: 15 Speech: Normal Motor strength normal: LUE, RUE, LLE, RLE Sensory: Normal - Psychological Associated symptoms: Normal affect, Normal mood - Skin Skin Temperature: Warm Skin Moisture: Dry Skin Color: Normal Course - Re-evaluation Re-evalutation: 11/10/17 06:19 At this time patient is resting comfortably. No acute distress. Reports history of hyperthyroidism. Has had his labs performed in the last month and states that they are at normal. Has an appointment with gum sprayer in 4 weeks. Offered blood work today but patient states that he actually is feeling a little bit better at this time and does not want to stay but wants to go home. States he will return if his symptoms get worse. Gave him warning signs with regards to worsening hypothyroidism and thyroid crisis including tachycardia, hypertension, weight loss, anxiety, chest pain or other symptoms. Patient verbalized understanding these instructions. At this time I do not feel patient is having an acute coronary syndrome. This is a well-appearing male in no acute distress at this time. Has appropriate follow-up. Has appropriate medications. Heart rate currently 58. Blood pressure normal. Afebrile and in no acute distress. Once again I did offer blood work at this time but patient did not want blood work performed and would like to go home because he states he is feeling better. - Vital Signs Vital signs: Temp Pulse Resp BP Pulse Ox 98.5 F 72 14 117/83 100 11/10/17 06:01 11/10/17 03:24 11/10/17 06:01 11/10/17 06:01 11/10/17 06:01 - EKG Interpretation by Me EKG shows normal: [place], Intervals, QRS Complexes, ST-T Waves [place]/QRS: RBBB Discharge - Discharge Clinical Impression: Chest pain Qualifiers: Chest pain type: unspecified Qualified Code(s): R07.9 - Chest pain, unspecified Condition: Good Disposition: HOME, SELF-CARE Instructions: Chest Pain of Unclear Cause ([facility]) Additional Instructions: In the event that you develop worsening symptoms, chest pain, weight loss, hair loss, severe anxiety, insomnia or other symptoms consistent with a return of your hyperthyroidism then please follow-up with her gum sprayer or return to the emergency department for repeat evaluation. Laboratory studies were offered to you today but you have decided to postpone that workup. We are always here. Please know that if symptoms are worse we do want to see you and want to reevaluate you. follow-up with your doctors as soon as possible. Forms: Return to Work Referrals: PARTH NAVARRO MD [Primary Care Provider] - Follow up as needed
[2017-11-10 06:28] VITALS: BP 117/83
--- NOTE | 2017-11-10 23:51 | EKG REPORT ---
SEVERITY:- ABNORMAL ECG - SINUS RHYTHM INCOMPLETE RIGHT BUNDLE BRANCH BLOCK : Confirmed by: Maribell Moya MD 10-Nov-2017 23:50:45
== END 2017-11-10 06:28 | disposition home or self-care (01) ==
LOC: ER 03:18
DX: R07.9 Chest pain, unspecified (principal); F41.9 Anxiety disorder, unspecified; E03.9 Hypothyroidism, unspecified
CPT/HCPCS: 71046; 93005; 93010; 99285

== ENCOUNTER 2018-04-08 01:53 | Emergency (ER) | payer OTHER ==
--- NOTE | 2018-04-08 03:00 | RADIOLOGY REPORT (SQ) ---
CLINICAL HISTORY: trauma COMPARISON: None. TECHNIQUE: CT CERVICAL SPINE WITHOUT IV CONTRAST on 04/08/2018 2:32 AM [employer] This exam was performed according to our departmental dose-optimization program, which includes automated exposure control, adjustment of the mA and/or kV according to patient size and/or use of iterative reconstruction technique. FINDINGS: There is no acute fracture. Alignment is anatomic. Disc spaces are maintained. Vertebral body heights are preserved. Soft tissues are unremarkable. IMPRESSION: No acute fracture or subluxation.
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
[2018-04-08 04:09] VITALS: BP 143/67
== END 2018-04-08 04:10 | disposition home or self-care (01) ==
LOC: ER 01:53
DX: S16.1XXA Strain of muscle, fascia and tendon at neck level, initial encounter (principal); S00.01XA Abrasion of scalp, initial encounter; R51 Headache; M54.2 Cervicalgia; V49.9XXA Car occupant (driver) (passenger) injured in unspecified traffic accident, initial encounter; J45.909 Unspecified asthma, uncomplicated
CPT/HCPCS: 72125; 99284

== ENCOUNTER 2018-09-22 17:11 | Emergency (ER) | payer OTHER ==
[2018-09-22 17:30] VITALS: BP 156/77
[2018-09-22] MEDS ORDERED: ACETAMINOPHEN 325 MG TABLET PO ONE (18:41)
[2018-09-22] MEDS ORDERED: DEXAMETHASONE SOD PHOS INJ 10 MG/1 ML VIAL IM ONE (19:01)
--- NOTE | 2018-09-22 19:11 | ER Document Report ---
HPI - HPI Patient complains to provider of: flu like sx/strep Time Seen by Provider: 09/22/18 18:54 Pain Level: 3 Context: Overall healthy he 27-year-old male presents the emergency department with chief complaint of flulike symptoms/strep. He said symptoms started yesterday with the sore throat and a fever. Patient said that he did take Tylenol yesterday which helped slightly. He said he the symptoms have persisted today and he has presented here with a T-max of 101.7 and tachycardic at 117. He also has a cough, no coryza, denies earache, denies headache, denies dizziness or lightheadedness, denies neck stiffness, complains of some mild shortness of breath in the right upper chest, no chest pain, complains of some nausea but no vomiting, denies abdominal pain, no malodorous urine, no other complaints. - REPRODUCTIVE Reproductive: DENIES: : Past Medical History - Social History Smoking Status: Never Smoker Family History: Reviewed & Not Pertinent Pulmonary Medical History: Reports: Hx Asthma Endocrine Medical History: Reports: Hx Hyperthyroidism Renal/ Medical History: Denies: Hx Peritoneal Dialysis - Immunizations Immunizations up to date: Yes Hx Diphtheria, Pertussis, Tetanus Vaccination: Yes Vertical Provider Document - CONSTITUTIONAL Notes: Reviewed vital signs and nursing note as charted by RN. CONSTITUTIONAL: Well-appearing, well-nourished; alert and interactive EYES: PERRL; Conjunctivae clear, no drainage; EOMI ENT: External ears without lesions; External auditory canal is patent; TMs without erythema, landmarks clear and well visualized, mild effusion in the right ear; no rhinorrhea; Pharynx with significant erythema and bilateral tonsillar exudate, 3+ tonsillar hypertrophy, airway patent, mucous membranes pink and moist NECK: Supple, no cervical lymphadenopathy, no masses CARD: Regular rate and rhythm; no murmurs, no rubs, no gallops, capillary refill < 2 seconds, symmetric pulses RESP: Respiratory rate and effort are normal. There is normal chest excursion. No respiratory distress. The lungs are clear to auscultation bilaterally, no wheezing, no rales, no rhonchi. ABD/GI: Normal bowel sounds; non-distended; soft, non-tender, no rebound, no guarding, no palpable organomegaly EXT: Normal ROM in all joints; non-tender to palpation; no effusions, no edema SKIN: Normal color for age and race; warm; dry; good turgor; no acute lesions noted NEURO: No facial asymmetry; Moves all extremities equally; Motor and sensory function intact - INFECTION CONTROL TRAVEL OUTSIDE OF THE [place] IN LAST 30 DAYS: No Course - Re-evaluation Re-evalutation: 09/22/18 19:10 Significant tonsillar hypertrophy and widespread exudate. Rapid strep ordered, dexamethasone 10 mg IV 1 time given, acetaminophen 975 mg 1 time given. 09/22/18 19:56 Rapid strep negative, will send for culture. I explained to patient that this also could potentially be mononucleosis but a Monospot was not drawn. This would not change our management. He received dexamethasone 10 mg IM. Magic mouthwash ordered. Pending normalized vital signs or a heart rate proportional to temperature patient will be stable for discharge. - Vital Signs Vital signs: Temp Pulse Resp BP Pulse Ox 101.7 F H 117 H 20 156/77 H 100 09/22/18 17:28 09/22/18 17:28 09/22/18 17:28 09/22/18 17:28 09/22/18 17:28 Discharge - Discharge Clinical Impression: Viral pharyngitis Fever Qualifiers: Fever type: unspecified Qualified Code(s): R50.9 - Fever, unspecified Condition: Good Disposition: HOME, SELF-CARE Additional Instructions: Your strep test is negative. Your symptoms are likely due to an viral infection and will resolve in the next 1-2 weeks. You have also been given a dose of steroids to help with your throat discomfort. Please continue to take ibuprofen 600 mg every 6 hours or Tylenol 1000 mg every 6 hours as needed for throat discomfort. You can also gargle with salt water. Continue to drink plenty of fluids. Follow-up with your primary care doctor in the next several days. Return if you become unable to swallow, have difficulty breathing, pass out, have persistent vomiting that prevents you from being able to tolerate fluids, or have any other symptoms that are concerning to you. Referrals: PARTH NAVARRO MD [Primary Care Provider] - Follow up as needed
[2018-09-22] MEDS ORDERED: NYSTATIN/DEXAMETH/DIPHEN SUSP 120 ML PO ONE (19:56)
== END 2018-09-22 20:35 | disposition home or self-care (01) ==
LOC: ER 17:11
DX: J02.8 Acute pharyngitis due to other specified organisms (principal); B97.89 Other viral agents as the cause of diseases classified elsewhere; R50.9 Fever, unspecified; R00.0 Tachycardia, unspecified; J45.909 Unspecified asthma, uncomplicated; R06.02 Shortness of breath; R05 Cough; R11.0 Nausea
CPT/HCPCS: 99283; 96372; 87070; 87880; J3490; J1100

== ENCOUNTER 2019-01-14 03:47 | Emergency (ER) | payer SELFPAY ==
[2019-01-14 04:09] VITALS: BP 126/81
--- NOTE | 2019-01-15 00:45 | EKG REPORT ---
SEVERITY:- ABNORMAL ECG - SINUS TACHYCARDIA INCOMPLETE RIGHT BUNDLE BRANCH BLOCK : Confirmed by: Jennifer Bonilla 15-Jan-2019 00:45:00
== END 2019-01-14 06:43 | disposition left against medical advice (07) ==
LOC: ER 03:47
DX: Z53.21 Procedure and treatment not carried out due to patient leaving prior to being seen by health care provider (principal); R07.9 Chest pain, unspecified; I45.10 Unspecified right bundle-branch block

== ENCOUNTER 2019-04-29 16:16 | Emergency (ER) | payer OTHER ==
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
== END 2019-04-29 17:00 | disposition home or self-care (01) ==
LOC: ER 16:16
DX: M54.5 Low back pain (principal); X58.XXXA Exposure to other specified factors, initial encounter; Y99.0 Civilian activity done for income or pay
CPT/HCPCS: 99283

== ENCOUNTER 2019-05-30 20:50 | Emergency (ER) | payer OTHER ==
[2019-05-30 21:23] VITALS: BP 139/69
--- NOTE | 2019-05-30 21:45 | ER Document Report ---
HPI - HPI Patient complains to provider of: work note Time Seen by Provider: 05/30/19 21:41 Onset: Other Quality of pain: No pain Context: 28-year-old male presents emergency department with request for a work note. 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 He reports he has been on leave of absence for the past month. He reports he needs a work note to go back to work. He denies fever vomiting diarrhea. Reports he has a slight cough. Denies back pain at this time. No complaints of urinary bowel incontinence or retention. Patient is happy laughing no distress Associated Symptoms: None Exacerbated by: Denies Relieved by: Denies Similar symptoms previously: No Recently seen / treated by doctor: No - REPRODUCTIVE Reproductive: DENIES: : Past Medical History - General Information source: Patient - Social History Smoking Status: Unknown if Ever Smoked Family History: Reviewed & Not Pertinent Patient has suicidal ideation: No Patient has homicidal ideation: No Pulmonary Medical History: Reports: Hx Asthma Endocrine Medical History: Reports: Hx Hyperthyroidism Renal/ Medical History: Denies: Hx Peritoneal Dialysis Surgical Hx: Negative - Immunizations Immunizations up to date: Yes Hx Diphtheria, Pertussis, Tetanus Vaccination: Yes Vertical Provider Document - CONSTITUTIONAL Agree With Documented VS: Yes Exam Limitations: No Limitations General Appearance: WD/WN, No Apparent Distress - INFECTION CONTROL TRAVEL OUTSIDE OF THE [place] IN LAST 30 DAYS: No - HEENT HEENT: Atraumatic, Normocephalic - NECK Neck: Supple - RESPIRATORY Respiratory: No Respiratory Distress - CARDIOVASCULAR Cardiovascular: Regular Rate - MUSCULOSKELETAL/EXTREMETIES Musculoskeletal/Extremeties: COURTNEY COREAS - NEURO Level of Consciousness: Awake, Alert, Appropriate Motor/Sensory: No Motor Deficit Course - Re-evaluation Re-evalutation: 05/30/19 21:50 Patient reports that he is just here for work note to go back to work. He denies back pain. Denies all symptoms. Patient looks happy no distress. Ambulates without problems. No complaints of urinary bowel retention or incontinence. I asked patient if he had gone to his human resources to follow- up with a company physician but he reports they never offered this to him. He reports he was just placed on PR[facility]. - Vital Signs Vital signs: Temp Pulse Resp BP Pulse Ox 98.7 F 89 16 139/69 H 100 05/30/19 21:22 05/30/19 21:22 05/30/19 21:22 05/30/19 21:22 05/30/19 21:22 Discharge - Discharge Clinical Impression: work note Condition: Stable Disposition: HOME, SELF-CARE Additional Instructions: *You have been to the emergency department tonight for a work note You were seen 1 month ago for back pain. You should follow-up with your primary care provider within 1 week for recheck Return to the emergency department for return of back pain concerns. Forms: Return to Work Referrals: OZZY DICKEY PA [Primary Care Provider] - Follow up in 3-5 days
== END 2019-05-30 21:49 | disposition home or self-care (01) ==
LOC: ER 20:50
DX: Z02.89 Encounter for other administrative examinations (principal)

== ENCOUNTER 2020-01-28 10:01 | Emergency (ER) | payer SELFPAY ==
--- NOTE | 2020-01-28 10:36 | ER Document Report ---
ED Medical Screen (RME) - General Chief Complaint: STD Exposure Stated Complaint: STD CHECK Time Seen by Provider: 01/28/20 10:32 Primary Care Provider: OZZY IDCKEY PA [Primary Care Provider] - Follow up as needed Mode of Arrival: Ambulatory Information source: Patient Notes: Otherwise healthy 29-year-old male presents the emergency department chief complaint of lower abdominal pain, low back pain, dysuria and scrotal tenderness. Patient reports he was recently treated for chlamydia. He states that his girlfriend has had chlamydia since May, she got treated at that time but due to COVID-19 he never got treated until 2 weeks ago. He is concerned that he may have a worsening infection. He denies any fever chills but states he has been getting cold sweats frequently. He is alert, oriented, no acute distress noted. Exam deferred until patient is in a room. I have greeted and performed a rapid initial assessment of this patient. A comprehensive ED assessment and evaluation of the patient, analysis of test results and completion of the medical decision making process will be conducted by additional ED providers. I have specifically instructed the patient or family members with the patient to immediately return to any nursing staff should anything change in the patient's condition or with their chief complaint. TRAVEL OUTSIDE OF THE [place] IN LAST 30 DAYS: No - Related Data Allergies/Adverse Reactions: lorazepam [From Ativan] Adverse Reaction (Verified 01/28/20 10:32) Anxiety Past Medical History Pulmonary Medical History: Reports: Hx Asthma Endocrine Medical History: Reports: Hx Hyperthyroidism Renal/ Medical History: Denies: Hx Peritoneal Dialysis - Immunizations Immunizations up to date: Yes Hx Diphtheria, Pertussis, Tetanus Vaccination: Yes Physical Exam - Vital signs Vitals: Temp Pulse Resp BP Pulse Ox 98.9 F 61 16 129/76 H 100 01/28/20 10:20 01/28/20 10:20 01/28/20 10:20 01/28/20 10:20 01/28/20 10:20 Course - Vital Signs Vital signs: Temp Pulse Resp BP Pulse Ox 98.9 F 61 16 129/76 H 100 01/28/20 10:20 01/28/20 10:20 01/28/20 10:20 01/28/20 10:20 01/28/20 10:20 Doctor's Discharge - Discharge Referrals: DICKEY,OZZY, PA [Primary Care Provider] - Follow up as needed
[2020-01-28 11:22] LABS: APPEARANCE,URINE CLEAR; BILIRUBIN,URINE NEGATIVE (NEGATIVE); COLOR,URINE YELLOW; GLUCOSE, URINE NEGATIVE (NEGATIVE); KETONES,URINE NEGATIVE (NEGATIVE); LEUKOCYTE ESTERASE,URINE NEGATIVE (NEGATIVE); NITRITE,URINE NEGATIVE (NEGATIVE); PROTEIN,URINE NEGATIVE (NEGATIVE); URINE SPECIFIC GRAVITY 1.016; UROBILINOGEN,URINE NEGATIVE mg/dL (<2.0)
[2020-01-28 11:23] LABS: ABSOLUTE EOSINOPHILS # (AUTO) 0.1 10^3/uL (0.0-0.6); ABSOLUTE LYMPHOCYTES (AUTO) 1.7 10^3/uL (0.5-4.7); ABSOLUTE MONOCYTES (AUTO) 0.6 10^3/uL (0.1-1.4); ABSOLUTE NEUT (AUTO) 2.7 10^3/uL (1.7-8.2); BASOPHILS % (AUTO) 0.7 % (0-2); EOSINOPHILS % (AUTO) 1.4 % (0-6); HEMATOCRIT 43.6 % (37.9-51.0); LYMPHOCYTES % (AUTO) 32.7 % (13-45); MEAN CORPUSCULAR HEMOGLOBIN 31.5 pg (27.0-33.4); MEAN CORPUSCULAR HGB CONC 34.4 g/dL (32.0-36.0); MEAN CORPUSCULAR VOLUME 92 fl (80-97); MONOCYTES % (AUTO) 11.6 % (3-13); PLATELET COUNT 297 10^3/uL (150-450); RED BLOOD COUNT 4.75 10^6/uL (4.35-5.55); RED CELL DISTRIBUTION WIDTH 13.3 % (11.5-14.0); SEGMENTED NEUTROPHILS % (AUTO) 53.6 % (42-78); TOTAL CELLS COUNTED % (AUTO) 100 %; WHITE BLOOD COUNT 5.1 10^3/uL (4.0-10.5)
[2020-01-28 11:45] LABS: ALBUMIN 4.7 g/dL (3.5-5.0); ALKALINE PHOSPHATASE 72 U/L (38-126); ANION GAP 9 (5-19); ASPARTATE AMINO TRANSFERASE 65 U/L (17-59); BILIRUBIN,DIRECT 0.2 mg/dL (0.0-0.4); BILIRUBIN,TOTAL 0.5 mg/dL (0.2-1.3); BLOOD UREA NITROGEN 15 mg/dL (7-20); CALCIUM 9.3 mg/dL (8.4-10.2); CARBON DIOXIDE 27 mmol/L (22-30); CHLORIDE 106 mmol/L (98-107); GLUCOSE 94 mg/dL (75-110); POTASSIUM 4.8 mmol/L (3.6-5.0); TOTAL PROTEIN 7.8 g/dL (6.3-8.2)
--- NOTE | 2020-01-28 12:47 | ER Document Report ---
ED GI/ - General Chief Complaint: Testicular Pain Stated Complaint: STD CHECK Time Seen by Provider: 01/28/20 10:32 Primary Care Provider: HUMERA MANN MD [NO LOCAL MD] - Follow up in 1 week (for urology follow up) OZZY DICKEY PA [Primary Care Provider] - Follow up in 1 week Mode of Arrival: Ambulatory TRAVEL OUTSIDE OF THE [place] IN LAST 30 DAYS: No - HPI Notes: 01/28/20 13:34 29-year-old male to the emergency department with complaints of testicular pain that is been going on for about 2 months. He states that his girlfriend had chlamydia back in May but he did not get treated until the beginning of January. He states that he was given a shot and 4 pills for coverage for chlamydia. He states that despite this he has continued to have some discomfort with urination as well as testicular pain. He states that the testicular pain feels tight like the testicles are swollen. It comes and goes. He denies any fevers or chills. Sometimes he has hesitancy when he urinates and a little bit of burning. He denies any fevers or chills. Admits to slight suprapubic tenderness. Denies any penile discharge. - Related Data Allergies/Adverse Reactions: lorazepam [From Ativan] Adverse Reaction (Verified 01/28/20 10:32) Anxiety Past Medical History - General Information source: Patient - Social History Smoking Status: Never Smoker Chew tobacco use (# tins/day): No Frequency of alcohol use: None Drug Abuse: None Family History: Reviewed & Not Pertinent Patient has homicidal ideation: No Pulmonary Medical History: Reports: Hx Asthma Endocrine Medical History: Reports: Hx Hyperthyroidism Renal/ Medical History: Denies: Hx Peritoneal Dialysis - Immunizations Immunizations up to date: Yes Hx Diphtheria, Pertussis, Tetanus Vaccination: Yes Review of Systems - Review of Systems Constitutional: denies: Chills, Fever EENT: No symptoms reported Cardiovascular: denies: Chest pain, Palpitations, Heart racing, Dizziness, Lightheaded Respiratory: denies: Cough, Short of breath Gastrointestinal: denies: Abdominal pain, Diarrhea, Nausea, Vomiting Genitourinary: See HPI, Dysuria Male Genitourinary: See HPI, Testicular pain Musculoskeletal: No symptoms reported Skin: No symptoms reported Hematologic/Lymphatic: No symptoms reported Neurological/Psychological: No symptoms reported -: Yes All other systems reviewed and negative Physical Exam - Vital signs Vitals: Temp Pulse Resp BP Pulse Ox 98.9 F 61 16 129/76 H 100 01/28/20 10:20 01/28/20 10:20 01/28/20 10:20 01/28/20 10:20 01/28/20 10:20 Interpretation: Normal - General General appearance: Appears well, Alert In distress: None - HEENT Head: Normocephalic, Atraumatic Eyes: Normal Pupils: PERRL - Respiratory Respiratory status: No respiratory distress Chest status: Nontender Breath sounds: Normal. No: Rales, Rhonchi, Wheezing Chest palpation: Normal - Cardiovascular Rhythm: Regular Heart sounds: Normal auscultation Murmur: No - Abdominal Inspection: Normal Distension: No distension Bowel sounds: Normal Tenderness: Nontender. No: Tender, McBurney's point, Moreland's sign, Guarding, Rebound Organomegaly: No organomegaly - Genitourinary Inspection: Normal Tenderness: Testicle tender - Mild tenderness to palpation over bilateral testicles without edema. There is no ecchymosis, erythema, or abscess. Chaperoned by CHAPITO Tate - Back Back: Normal, Nontender. No: CVA tenderness - Neurological Neuro grossly intact: Yes Cognition: Normal Orientation: AAOx4 [place] Coma Scale Eye Opening: Spontaneous [place] Coma Scale Verbal: Oriented [place] Coma Scale Motor: Obeys Commands [place] Coma Scale Total: 15 Speech: Normal Cranial nerves: Normal Cerebellar coordination: Normal Motor strength normal: LUE, RUE, LLE, RLE Additional motor exam normals: Equal identifier horse Sensory: Normal - Psychological Associated symptoms: Normal affect, Normal mood - Skin Skin Temperature: Warm Skin Moisture: Dry Skin Color: Normal Course - Re-evaluation Re-evalutation: 01/28/20 Impression: Testicular pain. This is been going on for some time. Patient voices concern for possible infection. His urine gonorrhea and chlamydia was negative here in the department. However we will go ahead and cover with doxycycline for 2 weeks. Also encouraged him to follow-up with urology. Noted scrotal ultrasound shows that the differential cyst. Patient is to return if any worsening symptoms. Encourage no sexual intercourse until evaluated by urologist. Patient agrees with the plan. - Vital Signs Vital signs: Temp Pulse Resp BP Pulse Ox 98.8 F 66 16 133/65 H 100 01/28/20 14:57 01/28/20 14:57 01/28/20 14:57 01/28/20 14:57 01/28/20 14:57 - Laboratory Result Diagrams: 01/28/20 10:44 01/28/20 10:44 Laboratory results interpreted by me: 01/28/20 01/28/20 10:44 10:44 AST 65 H ALT 54 H Urine Ascorbic Acid 20 H - Diagnostic Test Radiology reviewed: Image reviewed, Reports reviewed Discharge - Discharge Clinical Impression: Epididymal cyst Testicular pain Qualifiers: Laterality: bilateral Qualified Code(s): N50.811 - Right testicular pain Condition: Stable Disposition: HOME, SELF-CARE Instructions: Testicular Pain ([facility]) Additional Instructions: Follow-up with urologist without fail. Take antibiotics as prescribed. No sex until you see the urologist. Return if any worsening symptoms. Prescriptions: Doxycycline Monohydrate [Monodox] 100 mg PO BID #28 capsule Naproxen [Naprosyn 375 Mg Tablet] 375 mg PO BID #20 tablet Referrals: OZZY DICKEY PA [Primary Care Provider] - Follow up in 1 week HUMERA MANN MD [NO LOCAL MD] - Follow up in 1 week (for urology follow up)
[2020-01-28 12:48] LABS: CHLAM PCR NOT DETECTED (NOT DETECT)
--- NOTE | 2020-01-28 14:12 | RADIOLOGY REPORT (SQ) ---
EXAM DESCRIPTION: U/S SCROTUM W/DOPPLER IMAGES COMPLETED DATE/TIME: 01/28/2020 2:01 pm REASON FOR STUDY: testicular pain COMPARISON: None. TECHNIQUE: Static and realtime gutierrez scale imaging of the scrotum and testes. Selected color Doppler and spectral images recorded to document blood flow. LIMITATIONS: None. FINDINGS: RIGHT: TESTICLE: Normal size. Normal echotexture. Normal blood flow. No mass. EPIDIDYMIS: Normal. HYDROCELE OR VARICOCELE: No. HERNIA OR EXTRA-TESTICULAR MASS: No. OTHER: No other significant finding. LEFT: TESTICLE: Normal size. Normal echotexture. Normal blood flow. No mass. EPIDIDYMIS: Normal except for the presence of a 3 mm cyst in the epididymal head. HYDROCELE OR VARICOCELE: No. HERNIA OR EXTRA-TESTICULAR MASS: No. OTHER: No other significant finding. IMPRESSION: Small left epididymal cyst. No other significant findings in the scrotum. There is nor mal blood flow to each testicle. TECHNICAL DOCUMENTATION: JOB ID: [id number]- All Rights Reserved Reading location - IP/workstation name: [email or web address]
[2020-01-28 14:58] VITALS: BP 133/65
== END 2020-01-28 14:59 | disposition home or self-care (01) ==
LOC: ER 10:01
DX: N50.3 Cyst of epididymis (principal); N50.811 Right testicular pain; Z20.2 Contact with and (suspected) exposure to infections with a predominantly sexual mode of transmission; R30.0 Dysuria
CPT/HCPCS: 36415; 76870; 80053; 81001; 85025; 87491; 87591; 93976; 99284